=== PATIENT | male | born 1955 | race Caucasian/White ===

== ENCOUNTER 2023-10-03 15:25 | Outpatient (CLI) | payer OTHER, SELFPAY ==
--- NOTE | 2023-10-03 15:52 | ECHO_ITS ---
Patient Info Name: Amos Liu Age: 68 years : 1955 Gender: Male Ht: 72 in Wt: 285 lbs BSA: 2.61 m2 HR: 70 bpm BP: 120 / 80 mmHg Technical Quality: Fair Exam Date: 10/03/2023 4:00 PM Exam Location: Echo Lab Patient Status: Outpatient Admit Date: 10/03/2023 Staff Ordering Physician: Moo Triplett DO Attending Provider: Moo Triplett DO Referring Physician: Uziel BAILEY; Exam Type: CA echo doppler color flow Study Info Indications I10 - Essential (primary) hypertension Complete two-dimensional, color flow and Doppler transthoracic echocardiogram is performed. Summary 1. Complete two-dimensional, color flow and Doppler transthoracic echocardiogram is performed. 2. Left ventricular chamber dimension is normal. 3. Left ventricular systolic function is normal, estimated at 60-65%. 4. There is mild concentric increased left ventricular wall thickness. 5. The left ventricular diastolic function is grade I diastolic dysfunction. 6. E/e' 8 is minimally elevated. 7. Left atrial chamber dimension is mildly enlarged. 8. There is trace mitral valve regurgitation. 9. There is trace pulmonic regurgitation. 10. The aortic root size at the sinus of Valsalva is borderline dilated at 4.1 cm. Left Ventricle E/e' 8 is minimally elevated. Left ventricular chamber dimension is normal. Left ventricular systolic function is normal, estimated at 60-65%. There is mild concentric increased left ventricular wall thickness. The left ventricular diastolic function is grade I diastolic dysfunction. Right Ventricle Right ventricular systolic function is normal and with normal TAPSE 1.8 cm. Right ventricular chamber dimension is normal. Left Atria Left atrial chamber dimension is mildly enlarged. Right Atria Right atrial chamber dimension is normal. Aortic Valve The aortic valve is trileaflet. There is no aortic valve stenosis. There is no aortic valve regurgitation. Pulmonic Valve There is trace pulmonic regurgitation. Mitral Valve There is no mitral valve stenosis. There is trace mitral valve regurgitation. Tricuspid Valve There is no tricuspid valve regurgitation. Pericardium/Pleural There is no pericardial effusion. Inferior Vena Cava Normal inferior vena cava with >50% collapse upon inspiration consistent with normal right atrial pressure, 5 mmHg. Aorta The aortic root size at the sinus of Valsalva is borderline dilated at 4.1 cm. Left Ventricular Outflow Tract Name Value Normal LVOT 2D LVOT Diameter 2.3 cm LVOT Doppler LVOT Peak Gradient 2 mmHg LVOT Mean Gradient 1 mmHg LVOT VTI 17 cm LVOT VTI/AV VTI Ratio 0.9 LVOT Stroke Volume 72 ml LVOT CO 4.3 l/min LVOT CI 1.6 l/min/m2 Pulmonic Valve Name Value Normal PV Doppler PV Peak Gradient
== END 2023-10-03 15:26 | disposition home or self-care (01) ==
LOC: ANHCARD 15:27
PROVIDERS: PCP Physician Assistant Medical; Visit Provider Internal Medicine Cardiovascular Disease
DX: I10 Essential (primary) hypertension (principal)
CPT/HCPCS: 93306

== ENCOUNTER 2023-11-26 08:25 | Outpatient (CLI) | payer OTHER, SELFPAY ==
--- NOTE | ~2023-11-26 | NM_ITS ---
EXAMINATION: NM mustapha stress w perfusion DATE: 11/26/2023 11:26 INDICATION: Chest pain. TECHNIQUE: Rest images were obtained following intravenous administration of 8.9 mCi Tc99m tetrofosmi n (Myoview). The patient was infused intravenously with Lexiscan (regadenoson). Then, 29.2 mCi Tc99m tetrofosmin (Myoview) was administered intravenously, and supine and prone stress images were obtaine d. Data was reconstructed into short axis and horizontal and vertical long axis SPECT images. Gated S PECT images were also obtained. COMPARISON: Myocardial perfusion imaging 10/21/2017 FINDINGS: There is a moderate-sized, mild, fixed perfusion defect involving mid to basal inferior and inferolateral segments of left ventricle, consistent with infarct. No reversible component to sugges t ischemia. There is no segmental wall motion abnormality. Left ventricular ejection fraction measu res 58%. IMPRESSION: 1. Moderate-sized area of mild infarct involving mid to basal inferior and inferolateral segments of left and lateral. 2. Normal left ventricular ejection fraction measuring 58%. Reviewed, dictated and finalized at location A. IMPRESSION: 1. Moderate-sized area of mild infarct involving mid to basal inferior and infe rolateral segments of left and lateral. 2. Normal left ventricular ejection fraction measuring 58%.
--- NOTE | 2023-11-26 08:35 | EST_ITS ---
Patient Info Name: Amos Liu Age: 68 years : 1955 Gender: Male Ht: 72 in Wt: 290 lbs BSA: 2.64 m2 HR: 77 bpm BP: 136 / 90 mmHg Heart Rhythm: Sinus Rhythm Exam Date: 11/26/2023 10:37 AM Exam Location: Echo Lab Patient Status: Outpatient Admit Date: 11/26/2023 Staff Ordering Physician: Moo Triplett DO Attending Provider: Moo Triplett DO Exercise Technologist: Bonnie Gardner CT Exercise Physician: Moo Triplett DO Exam Type: CA stress mustapha w NM Study Info Indications Z01.810 - Encounter for preprocedural cardiovascular examination R06.09 - Other forms of dyspnea A regadenoson stress test was performed. Summary 1. 1. Negative lexiscan stress test for ischemic ST changes by ECG criteria. 2. 2. Stable hemodynamics throughout the test. 3. 3. Nuclear scan to follow and will be reported separately. Please correlate with it. 4. 4. Patient informed of the above results. Protocol: Lexiscan Stress ECG Details Stage: REST Duration (min): 1 min : 21 sec HR (bpm): 76 SBP (mmHg): 136 DBP (mmHg): 90 Stage: REST Duration (min): 5 min : 6 sec HR (bpm): 74 SBP (mmHg): 136 DBP (mmHg): 90 Stage: STAGE 1 Duration (min): 1 min : 0 sec HR (bpm): 80 SBP (mmHg): 136 DBP (mmHg): 90 Stage: RECOVERY Duration (min): 1 min : 0 sec HR (bpm): 85 SBP (mmHg): 136 DBP (mmHg): 90 Stage: RECOVERY Duration (min): 2 min : 0 sec HR (bpm): 86 SBP (mmHg): 136 DBP (mmHg): 90 Stage: RECOVERY Duration (min): 3 min : 0 sec HR (bpm): 84 SBP (mmHg): 127 DBP (mmHg): 86 Stage: RECOVERY Duration (min): 3 min : 42 sec HR (bpm): 81 SBP (mmHg): 127 DBP (mmHg): 86 Rest HR: 74 bpm Peak HR: 86 bpm Rest Sys BP: 136 mmHg Peak Sys BP: 136 mmHg Max Pred HR: 154 bpm % Max Pred HR: 56 % Target HR: 131 bpm Max RPP: 11,696 bpm*mmHg Termination Reason: Completed protocol Cardiac Symptoms: Shortness of breath Total Time: 1 min : 0 sec Rest Frazier BP: 90 mmHg Peak Frazier BP: 90 mmHg Total Dose: 0.4 mg Resting ECG Sinus rhythm, frequent PVC's. Stress ECG No ST changes. Arrhythmias None. Report Signatures
== END 2023-11-26 08:26 | disposition home or self-care (01) ==
PROVIDERS: PCP Physician Assistant Medical; Visit Provider Internal Medicine Cardiovascular Disease
DX: R06.09 Other forms of dyspnea (principal); Z01.810 Encounter for preprocedural cardiovascular examination
CPT/HCPCS: 78452; 93017; A9502; J2785

== ENCOUNTER 2024-10-05 13:35 | Emergency (ER) | payer OTHER, SELFPAY ==
--- NOTE | ~2024-10-05 | CT_ITS ---
EXAMINATION: CT foot LT wo con DATE: 10/05/2024 14:00 INDICATION: Left foot injury. TECHNIQUE: Computed tomography (CT) of the left foot was performed without intravenous contrast. Auto mated exposure control and iterative reconstruction technique were employed. The dose-length product was 389.23 mGy-cm. COMPARISON: None FINDINGS: There is moderate hallux valgus. There is a comminuted intra-articular fracture of head of first proximal phalanx. The main distal fracture fragment demonstrates 21 degrees dorsal angulation. There is dorsal dislocation of second middle phalanx with respect to the proximal phalanx. There are chip fractures of the dorsal and volar aspects of base of third middle phalanx. There is a chip avuls ion fracture of dorsal base of fourth distal phalanx. There is a nondisplaced fracture of volar base of fourth middle phalanx. There is soft tissue gas in the second-fourth digits. 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 There is moderate osteoarthritis of first metatarsophalangeal joint. Th ere is heterotopic ossification distal to medial malleolus. There is an enthesophyte of posterior asp ect of calcaneal tuberosity. IMPRESSION: 1. Fractures of first proximal phalanx, third middle phalanx, fourth middle phalanx. 2. Dislocation of second proximal interphalangeal joint. 3. Soft tissue gas in the second-fourth digits, which may be secondary to a skin defect or infection. Reviewed, dictated and finalized at location B. IMPRESSION: 1. Fractures of first proximal phalanx, third middle phalanx, fourth middle pha lanx. 2. Dislocation of second proximal interphalangeal joint. 3. Soft tissue gas in the second-fourth digits, which may be secondary to a ski n defect or infection.
[2024-10-05 13:36] VITALS: BP 174/107; PULSE 91; RESP 20; TEMP 36.4; O2SAT 93
--- NOTE | 2024-10-05 13:39 | ED_ITS ---
HPI - Extremity Problem General Chief complaint: Extremity Injury, Lower Stated complaint: left foot injury Time Seen by Provider: 10/05/24 13:39 Source: patient Mode of arrival: wheelchair Limitations: no limitations History of Present Illness HPI Narrative: 69 year old male presents to the Emergency Department complaining of left foot injury and pain. 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 He was wearing steel tipped shoes. He is unable to bear weight. The bottom of his sock is saturated with blood. Last tetanus unknown. He denies any other injury. MD Complaint: extremity pain Onset (ago): minute(s) Pain Consistency: constant Location: left and lower extremity Radiation: none Relieving factors: nothing Exacerbating factors: palpation Associated symptoms: denies other symptoms Related Data Home Medications ?Medication ?Instructions ?Recorded ?Confirmed ?Last Taken ?Type vfnwnvmw-oo-jaboi 300 mcg-K 60 1 tablet PO DAILY 06/15/19 05/05/24 Unknown History mcg-lycop 600 mcg-lutein 300 mcg tablet (Centrum Silver Men) amoxicillin 500 mg capsule 2,000 mg PO ONCE dental appts 11/06/23 05/05/24 Unknown History celecoxib 200 mg capsule (Celebrex) 200 mg PO DAILY 11/06/23 05/05/24 Unknown History vitamin e BYMOUTH DAILY 11/06/23 05/05/24 Unknown History Allergies Allergy/AdvReac Type Severity Reaction Status Date / Time No Known Allergies Allergy Mild Verified 10/05/24 13:39 Review of Systems Review of Systems: All systems reviewed & are unremarkable except as noted in HPI and below Constitutional: Constitutional: Reports as per HPI Eyes: Eyes: Reports as per HPI and Denies change in vision ENT: Reports system reviewed and no additional complaints, except as documented Cardiovascular: Cardiovascular: Reports as per HPI and Denies chest pain Respiratory: Respiratory: Reports as per HPI, Denies chest congestion, Denies cough and Denies dyspnea Gastrointestinal: Gastrointestinal: Reports as per HPI Genitourinary: Genitourinary: Reports no additional male genitourinary complaints Musculoskeletal: Musculoskeletal: Reports no additional musculoskeletal complaints and Reports arthralgias Comments: left foot pain Integumentary/Breasts: Skin/Breast: Reports system reviewed and no additional complaints, except as docu Neurologic: Reports system reviewed and no additional complaints, except as documented, Denies headache(s) and Denies numbness PMFSH Past Medical History Medical History Low HDL (under 40) Venous insufficiency CHF (congestive heart failure), NYHA class III Lower extremity edema Acquired clawhand, left hand Hoarseness ARIELLE on CPAP Obesity (BMI 35.0-39.9 without comorbidity) Thoracic aortic aneurysm without rupture Ventricular ectopic beats Essential hypertension THOMAS (dyspnea on exertion) ARIELLE on CPAP Surgical History Surgical History History of knee surgery non-cancerous tumor removed History of left knee replacement Family History Family History Father Family history of liver disease, Onset Age: 78 Other Family history of colitis Social History Social History Smoking status: Former smoker Tobacco type: cigarettes Second hand tobacco smoke exposure: Yes Smoking end date: 07/29/76 Alcohol intake: never Substance use: never Substance use type: does not use Do You Feel Safe in your Home?: Yes Lack of Transportation: No Lack of Food: Never True Current Housing: I Have Housing Concerned About Future Housing: No Difficulty Paying Gas/Electric Bills: No Difficulty Paying for Meds: No Currently Unemployed: No Difficulty w/ Childcare or Family Care: No Living arrangements: alone Occupation/Education: occupation 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 Gender identity (if verbalized by the patient): Male Exam Const: Nutritional Appearance: obese Orientation/consciousness: patient oriented x3 Limitations: no limitations Other: mild distress HENMT: Head: normal to inspection Ears: external ears normal Face/Nose/Sinus: Normal external nose present Face and sinus: normal facial exam Mouth: Yes Normal oral and palatal mucosa present Other: skull non-tender to palpation Eyes: Pupils: Equal, round and reactive pupils present EOM: EOMs intact bilaterally Direct Ophthalmoscopy: no photophobia Neck: Neck: normal visual inspection Other: non-tender to palpation Chest: Chest palpation & inspection: normal inspection of the chest and no tenderness Resp: Effort & Inspection: normal respiratory effort Auscultation: clear to auscultation bilaterally Cardio: Rate: regular rate Rhythm: regular rhythm Other: peripheral pulses intact and symmetric GI: Inspection: non-distended GI Palp: Yes Soft to palpation and No Tenderness to palpation present (GI) Back/Spine/Pelvis: Back: no CVA tenderness Skin: General skin exam: normal color Rashes: no rashes Other: lacerations to left foot - extent unknown until can be cleaned after CT scan Neuro: General: patient oriented x3 Speech: normal speech Other: no gross deficit Extrem: Other: trauma to left foot with diffuse tenderness distal foot, lacerations unknown extent due to blood covering at this time Course Course Emergency Course: 69 y/o male presents to the ED with left foot injury and pain. Patient fell and had 55 gallon drum fall onto his foot. 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 PE: diffuse tenderness distal foot and toes. Laceration, unknown what extent until can be cleaned. Has largest laceration at base 2nd toe with lacerations in between toes, patient not tolerating full exam due to pain with movment. Tx: foot soaked and cleansed wounds as best as patient could tolerate. Attempted reduction of 2nd toe dislocation, but patient unable to tolerate. Since he is having ortho /podiatry evaluation of open fx/s, wounds, will defer to accepting service. CT L Foot: *comminuted, IA fx head 1st prox phalanx with main distal fragment 21 degrees dorsal angulation *dorsal dislocation 2nd MP with respect to the PP *chip fx's dorsal and volar aspects base 3rd MP *chip avulsion fx base 4th DP *nondisplaced fx volar base 4th MP *soft tissue gas in the 2nd-4th digits (5605) discussed with Dr. Yang. States does not take Workers Comp and no one locally does. Usually need [facility] go to university setting. (0401) report given to [facility] transfer. Will connect with ED (3685) discussed with Dr. Bryan (ED) who accepted patient for transfer to ED for evaluation and further treatment. Vital Signs Vital signs: Vital Signs Temperature 36.4 C 10/05/24 13:36 Pulse Rate 91 10/05/24 13:36 Respiratory Rate 20 10/05/24 13:36 Blood Pressure 174/107 H 10/05/24 13:36 Pulse Oximetry 93 10/05/24 13:36 Oxygen Delivery Room Air 10/05/24 13:36 Temperature 36.8 C 10/05/24 15:33 Pulse Rate 78 10/05/24 15:33 Respiratory Rate 20 10/05/24 15:33 Blood Pressure 132/58 L 10/05/24 15:33 Pulse Oximetry 94 10/05/24 15:33 Oxygen Delivery Room Air 10/05/24 15:33 Transfer Transfered to: [facility] Hospital Transportation: Other (private vehicle) Transfer rationale: specialty evaluation of multiple open fractures, wounds, dislocation secondary to trauma. Not available here Accepting physician: Dr. Bryan Transfer comments: NPO Discharge Plan Discharge Clinical Impression: Fracture of multiple toes, Laceration of toe of left foot, Dislocation of second toe, left, open, Crush injury of left foot Patient Disposition: Acute Care Hospital Condition: Stable Additional Instructions: Go directly to [facility] Emergency Department Nothing to eat or drink Patient Language: Marshallese Prescriptions: No Action Centrum Silver Men 300-600-300 mcg tablet 1 tablet PO DAILY celecoxib [Celebrex] 200 mg capsule 200 mg PO DAILY vitamin e BYMOUTH DAILY amoxicillin 500 mg capsule 2,000 mg PO ONCE hydrochlorothiazide 25 mg tablet 25 mg PO DAILY Qty: 90 1RF metoprolol succinate 50 mg tablet extended release 24 hr 50 mg PO DAILY Qty: 90 1RF Follow-up/Referrals: Jennifer Christensen PA-C [Primary Care Provider] - Time of Disposition: 15:30
[2024-10-05 14:30] VITALS: BP 132/73; PULSE 79; RESP 17; O2SAT 95
[2024-10-05 15:33] VITALS: BP 132/58; PULSE 78; RESP 20; TEMP 36.8; O2SAT 94
--- OUTSIDE RECORDS SUMMARY | 2024-10-05 15:38 | XMS_ITS | Encounter Summary ---
Author Organization [facility] Address [address] [place] [address] Care Team Providers Care Seaman Officer Name Role Phone Jennifer Christensen Primary Care Provider [phone] Encounter Details Date Type Department Care Team (Late st Contact Info) Description 07/21/[address] [facility] [address] [place] [address] Elzbieta Phan, PharmD Social History Tobacco Use Types Packs/Day Years Used Date Smoking Tobacco: Former Smokeless Tobacco: Never Alcohol Use Standard Drinks/Week Comments No 0 (1 standard drink = 0.6 oz pur e alcohol) AUDIT-C Answer Date Recorded Frequency of Alcohol Consumption Never 01/11/2019 Average Number of Drinks Not on file 019 Frequency of Binge Drinking Not on file 12/27 Sex and Gender Information Value Date Recorded Sex Assigned at Male 08/20/2019 6:33 PM CONSERVATION AGENT Legal Sex Male 7:08 PM CDT Gender Identity Male 08/20/2019 6:33 PM CONSERVATION AGENT Sexual Orientation Straight 08/20/2019 6: 33 PM CONSERVATION AGENT documented as of this encounter Functional Status * RETIRED Are you deaf or do you have serious difficulty hearing Answer Date of Assessment Author Status No 07/11/2019 9:04 AM CONSERVATION AGENT Acti ve documented as of this encounter Plan of Treatment Not on file documented as of this encounter Visit Diagnoses Not on filedocumented in this encounter Care Teams Seaman Officer Relationship Specialty Start Date End Date Jennifer Christensen PA PCP - General PHYSICIAN FURNITURE CRATER 01/11/19 documented as of this encounter
--- OUTSIDE RECORDS SUMMARY | 2024-10-05 15:38 | XMS_ITS | Clinical Summary ---
Author Organization [facility] Address [facility] [place] [address] Care Team Providers Care Engine Service Repairer Name Role Phone Jennifer Christensen Primary Care Provider [phone] Allergies No known active allergies Medications metoprolol succinate ER 50 MG 24 hr tablet Take 50 mg by mouth daily. 12/05/2018 Active multi vitamin/minerals (VITAMINS/MINERA LS) tablet Take 1 tablet by mouth daily. Active hydrochlorothiaz rupa 50 MG tablet Take 50 mg by mouth daily. 1 06/20/2019 Active hydrocodone-acet aminophen 5-325 MG tabletIndication s:Acute Pain < 7 Day Supply Take 1 tablet by mouth every 6 (six) hours as needed (Moderate pain (Scale 6-7)). Indications : Acute Pain < 7 Day Supply 24 tablet 07/16/2019 Active Active Problems Problem Noted Date Diagnosed Date Near syncope 08/20/2019 Hypotension 08/20/2019 Septic arthritis of ankle ([facility]) 06/28 History of total left knee replacement 9 Family History Medical History Relation Comments Heart Disease Father Heart Disease Son Relation Status Comments Father Son Social History Tobacco Use Types Packs/Day Years [...] Sex Assigned at Male 08/20/2019 6:33 PM CALL CENTER CONSULTANT Legal Sex Male 7:08 PM CDT Gender Identity Male 08/20/2019 6:33 PM CALL CENTER CONSULTANT Sexual Orientation Straight 08/20/2019 6: 33 PM CALL CENTER CONSULTANT Last Filed Vital Signs Vital Sign Reading Time Taken Comments Blood Pressure 131/69 08/21/2019 8:29 AM CALL CENTER CONSULTANT Pulse 81 08/21/2019 7:00 AM CALL CENTER CONSULTANT Temperature 37.1 C (98.7 F) 08/21/2019 7:00 AM CALL CENTER CONSULTANT Respiratory Rate 16 08/21/2019 7:00 AM CALL CENTER CONSULTANT Oxygen Saturation 94% 08/21/2019 3:16 AM CALL CENTER CONSULTANT Inhaled Oxygen Concentration - - Weight 124.8 kg (275 lb 2.2 oz) 08/21/2019 3:12 AM CALL CENTER CONSULTANT Height 182.9 cm (6') 08/20/2019 6:30 PM CALL CENTER CONSULTANT Body Mass Index 37.31 08/20/2019 6:30 PM CALL CENTER CONSULTANT Plan of Treatment Health Maintenance Due Date Last Done Comments Colorectal Cancer Screening Colonoscopy (10 Years) 1955 Hepatitis C 1975 DTaP, Tdap and Td Vaccines ( 1 - Tdap) 1976 Zoster Vaccines (1 of 2) 2007 RSV Immunization or 60+ Years (1 - Risk 60-74 years 1-dose series) 2017 Pneumococcal Vaccine: 65+ Ye ars (1 of 1 - PCV) 2022 COVID-19 Vaccine (1 - 2023-2 5 season) 2024 Influenza Adult (#1) 2024 04/22/2010 Meningococcal B Vaccine Aged Out No l onger eligible based on patient's age to complete this topic Meningococcal Vaccine Aged Out No julian jacob eligible based on patient's age to complete this topic RSV Immunizations Under 20 Months Aged Out No longer eligible based on patient's age to complete this topic Goals Goal Patient Goal Type Associated Problems Recent Progress Patient-Stated? Author HOME TO [facility] No Porsha Walker, RN Insurance MEDICARE PART A Member Subscriber Plan / Payer (Ef fective 2023-Present) Name:Amos Liu Relation to Subscriber:Self Name:Amos Liu Payer ID:Not on file Group ID:Not on file Type:Indemnity Address: [facility] [address] [place], [place] [employer] Advance Directives * Full Code (Latest Code Status on File) Date Activated Date Inactivated Comments 08/20/2019 4:49 PM 08/21/2019 4:35 PM * Full Code Date Activated Date Inactivated Comments 07/11/2019 9:40 AM 07/16/2019 7:06 PM Care Teams Engine Service Repairer Relationship Specialty Start Date End Date Jennifer Christensen PA PCP - General PHYSICIAN ELECTRON BEAM PHOTO MASK TECHNICIAN 01/11/19
--- OUTSIDE RECORDS SUMMARY | 2024-10-05 15:38 | XMS_ITS | Encounter Summary ---
Author Organization [facility] Address [address] [place] [address] Phone Care Team Providers Care Digital Marketing Officer Name Role Phone No, Physician Primary Care Provider [phone] Jennifer Christensen Primary Care Provider Royer Pierce MD Unavailable [phone] Royer Figueredo OT Unavailable [phone] Encounter Details Date Type Department Care Team (Latest Contact Info) Description 10/21/2017 Orders Only [facility] Scanning, Provider Social History Tobacco Use Types Packs/Day Years Used Date Smoking Tobacco: Never Assessed Sex and Gender Information Value Date Recorded Sex Assigned at Not on file Legal Sex Male 4:40 AM COSTUMER ASSISTANT Gender Identity Not on file Sexual Orientation Not on file documented as of this encounter Plan of Treatment Not on file documented as of this encounter Procedures Procedure Name Priority Date/Time Associated Diagnosis Comments CARDIOLOGY DOCUMENT SCAN 10/21/2017 documented in this encounter Results * SCAN - CARDIOLOGY (10/21/2017) Anatomical Region Laterality Modality Other us Provider Scanning CV CARDIAC SERVICES PROCEDURES Final Result documented in this encounter Visit Diagnoses Not on filedocumented in this encounter Care Teams Digital Marketing Officer Relationship Specialty Start Date End Date No, Physician PCP - General 12/11/18 09/13/22 Jennifer Christensen PA [address] [place] [address] PCP - General Physician Attending Psychiatrist 09/14/22 Royer Pierce MD [address] LOWR LEVEL LOWER LEVEL [address] [place] [address] Referring Physician Orthopedic Surgery 09/14/22 Royer Figueredo OT [id number] [address] Occupational Therapist Occupational Therapy 02/09/23 documented as of this encounter
--- OUTSIDE RECORDS SUMMARY | 2024-10-05 15:38 | XMS_ITS | Encounter Summary ---
Author Organization [facility] Address [address] [place] [address] Care Team Providers Care Cover Stripper Name Role Phone Jennifer Christensen Primary Care Provider [phone] Encounter Details Date Type Department Care Team (Late st Contact Info) Description 07/16/2019 Therapy Plan [facility] [address] [place] [address] [place] [address] [place] [address] Social History Tobacco Use Types Packs/Day Years [...] Sex Assigned at Male 08/20/2019 6:33 PM PERSONAL FINANCE INSTRUCTOR Legal Sex Male 7:08 PM CDT Gender Identity Male 08/20/2019 6:33 PM PERSONAL FINANCE INSTRUCTOR Sexual Orientation Straight 08/20/2019 6: 33 PM PERSONAL FINANCE INSTRUCTOR documented as of this encounter Functional Status * RETIRED Are you deaf or do you have serious difficulty hearing Answer Date of Assessment Author Status No 07/11/2019 9:04 AM PERSONAL FINANCE INSTRUCTOR Activ e documented as of this encounter Plan of Treatment Not on file documented as of this encounter Visit Diagnoses Not on filedocumented in this encounter Care Teams Cover Stripper Relationship Specialty Start Date End Date Jennifer Christensen PA PCP - General PHYSICIAN COURT SPECIALIST 01/11/19 documented as of this encounter
--- OUTSIDE RECORDS SUMMARY | 2024-10-05 15:38 | XMS_ITS | Clinical Summary ---
Author Organization [facility] Address [address] [place] [address] Care Team Providers Care Nuclear Engineering Technician Name Role Phone Jennifer Christensen PA-C Primary Care Provider [phone] Moo Triplett DO Unavailable Source Comments [facility],non-owned Affiliates and Associated Physician Practices is amultiple site organization consisting of ambulatory clinics and hospital sitesin [place], [place], [place] and [place]. This disclosure is being madepursuant to the Care Everywhere program and may not contain all information available regarding this patient. Last updated 18.[facility] Allergies Active Allergy Reactions Criticality Noted Date Comments Oxycodone Unknown Low 11/08/2022 Pt states has complaints of shortness of breath. States he must go outside and get some air when taking Oxycodone. Would like to avoid taking in the future. Medications * Be aware that medications may not be up to date on this document. Alwaysverify current medications with the patient. Medication Sig Dispensed Refills Start Date End Date Status multivitamin daily (THERAGRAN) tablet Take 1 (one) tablet by mouth daily with food Instructed patient to stop 1 week before surgery. Active metoprolol succinate XL 24hr (TOPROL XL) 50 MG tablet Take 1 (one) tablet by mouth once daily 4 12/05/2018 Active Cholecalciferol 50 MCG (2000 UT) Take 1 (one) tablet by mouth every morning Active Menthol, Topical Analgesic, (Biofreeze) 4 % Active VITAMIN E PO Take 1 tablet by mouth every morning Active Multiple Vitamins-Minerals (Super Thera Sierra M) TABS Take 1 (one) tablet by mouth every morning Active acetaminophen (Tylenol) 500 MG tabletIndications:Pa in [The details of the medication are not available because there are pending changes by a home health clinician.] 60 tablet 12/07/2023 Active Additional Information Patient taking differently:1,000 mg Oral 3 TIMES DAILY, Maximum allowable Acetaminophen amount = 4 Grams (4000 mg) / 24 hours.still taking, Indications: Pain, Reported on 12/19/2023 hydroCHLOROthiazide (Hydrodiuril) 25 MG tablet Take 1 (one) tablet by mouth once daily 02/13/2024 Active HYDROcodone-acetamin ophen ([place]) 10-325 MG tabletIndications:Ot her acute postprocedural pain TAKE ONE-HALF TO 1 TABLET BY MOUTH EVERY 4 HOURS NEEDED FOR PAIN 30 tablet 12/07/2023 Active docusate sodium (Colace) 100 MG capsule TAKE ONE CAPSULE BY MOUTH 2 TIMES A DAY 60 capsule 12/07/2023 5 Active aspirin (Aspirin) 81 MG chew tablet CHEW AND SWALLOW 1 TABLET BY MOUTH TWO TIMES A DAY FOR 42 DAYS FOR BLOOD CLOT PREVENTION 84 tablet 12/07/2023 5 Active Acetaminophen Extra Strength 500 MG TABS TAKE TWO TABLETS BY MOUTH 3 TIMES A DAY FOR 10 DAYS. MAX OF 4000 MG OF ACETAMINOPHEN PER DAY 60 tablet 12/07/2023 5 Active celecoxib (CeleBREX) 200 MG capsuleIndications:P rimary osteoarthritis of right knee Take 1 capsule by mouth once daily 30 capsule 5 04/27/2024 Active Active Problems Problem Noted Date Diagnosed Date History of total left knee replacement 9 Primary osteoarthritis of right knee 12/15/2018 Encounters Date Type Department Care Team Description 10/05/2024 3:37 PM CDT Emergency [facility] EMERGENCY DEPARTMENT [address] [place] [address] from Last 3 Months Immunizations Name Administration Dates Next Due INFLUENZA VACCINE 04/22/2010 Social History Tobacco Use Types Packs/Day Years Used Date Smoking Tobacco: Never Smokeless Tobacco: Former Chew Quit: 11/26/2009 Tobacco Cessation:Counseling Given: Not Answered Alcohol Use Standard Drinks/Week Comments Not Currently 0 (1 standard drink = 0.6 oz pur e alcohol) quit 1982 OASIS D0700: Social Isolation Answer Da te Recorded Frequency of experiencing loneliness or isolatio n Never 12/25/2023 OASIS A1250: Transportation Answer Date Recorded Lack of Transportation (Medical) No 12/25/2023 Lack of Transportation (Non-Medical) No 12/25/2023 Patient Unable or Declines to Respond No 12/25/2023 OASIS B1300: Health Literacy Answer Tristen e Recorded Frequency of needing help to read materials from doctor or pharmacy Never 12/25/2023 AUDIT-C Answer Date Recorded Q1: How often do you have a drink containing alcohol? Monthly or less 12/06/2023 Q2: How many drinks containi ng alcohol do you have on a typical day when you are drinking? Patient does not drink Q3: How often do you have si x or more drinks on one occasion? Never 12/06/2023 Hunger Vital Sign Answer Date Recorded Within the past 12 months, y ou worried that your food would run out before you got the money to buy more. Never true 12/06/19 24 Within the past 12 months, t he food you bought just didn't last and you didn't have money to get more. Never true 12/06/2023 Sex and Gender Information Value Date Recorded Sex Assigned at Not on file Gender Identity Not on file Sexual Orientation Not on file Last Filed Vital Signs Vital Sign Reading Time Taken Comments Blood Pressure 122/66 12/25/2023 1:39 PM CDT Pulse 66 12/25/2023 1:39 PM CDT Temperature 36.6 C (97.8 F) 12/25/2023 1:39 PM CDT Respiratory Rate 17 12/25/2023 1:39 PM CDT Oxygen Saturation 98% 12/25/2023 1:39 PM CDT Inhaled Oxygen Concentration - - Weight 128.6 kg (283 lb 9.6 oz) 12/06/2023 7:36 AM CDT Height 182.9 cm (6') 12/06/2023 7:36 AM CDT Body Mass Index 38.46 12/06/2023 7:36 AM CDT Plan of Treatment Health Maintenance Due Date Last Done Comments COLOGUARD (AGES 45-75) - COL ON CA SCREENING 1957 COLON MONITORING 1957 COLONOSCOPY - COLON CA SCREENING 1957 CT COLONOGRAPHY - COLON CA SCREENING 1957 Colorectal Cancer Screening 1957 FIT - COLON CA SCREENING 1957 FLEX SIG - COLON CA SCREENING 1957 LIPID TESTING 1957 HEPATITIS C SCREENING 07/19/1975 DTAP/TDAP/TD VACCINES (1 - Tdap) 1976 PNEUMOCOCCAL VACCINE 50+ (1 of 1 - PCV) 2007 ZOSTER VACCINE (1 of 2) 2007 COVID-19 VACCINE (1 - 2023-2 5 season) 2024 INFLUENZA VACCINE (#1) 2024 04/22/2010 DEPRESSION SCREENING 07/29/2024 SCREENING FOR DIABETES 10/02/2026 , 04/04/2010 Respiratory Syncytial Virus (RSV) Vaccine Pt: or over 60 yrs (1 - 1-dose 75+ series) 2032 HEPATITIS B VACCINE Aged Out No longe r eligible based on patient's age to complete this topic HIB VACCINE Aged Out No longer eligi ble based on patient's age to complete this topic HPV VACCINE Aged Out No longer eligi ble based on patient's age to complete this topic MENINGOCOCCAL (Group B) VACCINE Aged Out No longer eligible b ased on patient's age to complete this topic MENINGOCOCCAL VACCINE Aged Out No julian jacob eligible based on patient's age to complete this topic Medical Devices Implanted Type Area Toolroom Keeper Device Identifier Shelf Expiration Date Model / Serial / Lot Cmnt Bone Plc R 40gm Grn Implanted:Qty: 2 on 12/06/2023 by Lew Leos MD at [facility] Right: Knee [employer] 03/28/2026 [id number] / / [id number] Cmpnt Ptlr Std 31mm 3 Pg Kn Ser A Implanted:Qty: 1 on 12/06/2023 by Lew Leos MD at [facility] Right: Knee [employer] 07/02/2028 [id number] / / [id number] Cmpnt Fem Kn Rt Cr Cmnt Prm Vngrd Intlk Implanted:Qty: 1 on 12/06/2023 by Lew Leos MD at [facility] Right: Knee [employer] 07/11/2033 [id number] / / [id number] Tray Tib 83mm Kn Cocr I Beam Implanted:Qty: 1 on 12/06/2023 by Lew Leos MD at [facility] Right: Knee [employer] 01/12/2032 [id number] / / [id number] Tibial Insert 83mm X 14mm Implanted:Qty: 1 on 12/06/2023 by Lew Leos MD at [facility] Right: Knee [employer] 08/03/2027 [id number] / / [id number] Procedures Procedure Name Priority Date/Time Associated Diagnosis Comments COMPREHENSIVE METABOLIC PANEL Routine 10/03/2023 1:11 PM SMELTER OPERATOR Pre-op evaluation from Last 3 Months or Most Recently Relevant to Health Maintenance Results * COMPREHENSIVE METABOLIC PANEL (10/03/2023 1:11 PM SMELTER OPERATOR) Glucose 100 70 - 105 mg/dL 10/03/2023 1:48 PM SMELTER OPERATOR [facility] Sodium 140 136 - 145 mmol/L 10/03/2023 1:48 PM SMELTER OPERATOR [facility] Potassium 4.2 3.5 - 5.1 mmol/L 10/03/2023 1:48 PM SMELTER OPERATOR [facility] Chloride 105 98 - 107 mmol/L 10/03/2023 1:48 PM SMELTER OPERATOR [facility] CO2 27 22 - 29 mmol/L 10/03/2023 1:48 PM SMELTER OPERATOR [facility] Calcium 9.2 8.4 - 10.4 mg/dL 10/03/2023 1:48 PM SMELTER OPERATOR [facility] Anion Gap 8 6 - 16 mmol/L 10/03/2023 1:48 PM SMELTER OPERATOR [facility] BUN 21 7 - 26 mg/dL 10/03/2023 1:48 PM SMELTER OPERATOR [facility] Creatinine 0.92 0.72 - 1.25 mg/dL 10/03/2023 1:48 PM SMELTER OPERATOR [facility] Alkaline Phosphatase 74 40 - 150 U/L 10/03/2023 1:48 PM SMELTER OPERATOR [facility] ALT 21 0 - 55 U/L 10/03/2023 1:48 PM SMELTER OPERATOR [facility] AST 21 5 - 34 U/L 10/03/2023 1:48 PM SMELTER OPERATOR [facility] Protein Total 8.3 6.4 - 8.3 gm/dL 10/03/2023 1:48 PM SMELTER OPERATOR [facility] Albumin 4.0 3.4 - 5.0 gm/dL 10/03/2023 1:48 PM SMELTER OPERATOR [facility] Bilirubin Total 0.6 0.2 - 1.2 mg/dL 10/03/2023 1:48 PM SMELTER OPERATOR [facility] eGFR by CKD-EPI >90 >=90 mL/min/1.7 3 m2 10/03/2023 1:48 PM SMELTER OPERATOR [facility] Blood BLOOD SPECIMEN / Unknown Venipuncture / Unknown 10/03/2023 1:11 PM SMELTER OPERATOR 10/03/2023 1:27 PM SMELTER OPERATOR Flavia Chen [employer] OFFICER LAB - CHEMISTRY O RDERABLES [facility] [address] [place] [address] from Last 3 Months or Most Recently Relevant to Health Maintenance Advance Directives * Full Code (Latest Code Status on File) Date Activated Date Inactivated Comments 12/06/2023 12:25 PM 12/07/2023 2:35 PM * Full Code Date Activated Date Inactivated Comments 04/19/2010 12:07 PM 04/23/2010 1:33 AM Care Teams Nuclear Engineering Technician Relationship Specialty Start Date End Date Jennifer Christensen PA-C [address] [place] [address] PCP - General Physician Retort Kiln Burner 10/03/23 Moo Triplett DO [address] [facility] [address] [place] [address] Internal Medicine 10/03/23
--- OUTSIDE RECORDS SUMMARY | 2024-10-05 15:38 | XMS_ITS | Encounter Summary ---
Author Organization [facility] Address [address] [place] [address] Care Team Providers Care Director Of Instruction Name Role Phone Jennifer Christensen PA-C Primary Care Provider [phone] Moo Triplett DO Unavailable Encounter Details Date Type Department Care Team (Late st Contact Info) Description 10/05/2024 3:37 PM CDT Emergency [facility] EMERGENCY DEPARTMENT [address] [place] [id number] Social History Tobacco Use Types Packs/Day Years Used Date Smoking Tobacco: Never Smokeless Tobacco: Former Chew Quit: 11/26/2009 Alcohol Use Standard Drinks/Week Comments Not Currently [...] on filedocumented in this encounter Care Teams Director Of Instruction Relationship Specialty Start Date End Date Jennifer Christensen PA-C [address] [address] PCP - General Physician Broach Operator 10/03/23 Moo Triplett DO [address] [facility] [address] [place] [address] Internal Medicine 10/03/23 documented as of this encounter
--- OUTSIDE RECORDS SUMMARY | 2024-10-05 15:38 | XMS_ITS | Referral Summary ---
Author Organization [facility] Address [address] [place] [address] Care Team Providers Care Gemologist Name Role Phone Jennifer Christensen Primary Care Provider Royer Pierce MD Unavailable [phone] Royer Figueredo OT Unavailable Allergies Active Allergy Reactions Criticality Noted Date Comments Oxycodone Other (See comments) Low 11/08/2022 Pt states has complaints of shortness of breath. States he must go outside and get some air when taking Oxycodone. Would like to avoid taking in the future. Medications cholecalciferol (VITAMIN D-3) 2,000 unit tablet Take 1 tablet (2,000 Units total) by mouth every morning Active metoprolol XL (TOPROL-XL) 50 mg 24 hr tablet Take 1 tablet (50 mg total) by mouth every morning 5 12/05/2018 Active multivitamin with minerals tablet Take 1 tablet by mouth every morning Active hydroCHLOROthia zide (HYDRODIURIL) 25 mg tablet Take 1 tablet (25 mg total) by mouth every morning 08/24/2022 Active vitamin E acetate (VITAMIN E ORAL) Take 1 tablet by mouth every morning Active acetaminophen (TYLENOL) 500 mg tablet Take 2 tablets (1,000 mg total) by mouth every 8 (eight) hours 60 tablet 10/25/2022 Active ibuprofen (ADVIL,MOTRIN) 600 mg tablet Take 1 tablet (600 mg total) by mouth 3 (three) times a day 60 tablet 10/25/2022 Active oxyCODONE (ROXICODONE) 5 mg immediate release tabletIndicatio ns:Pain Take 1 tablet (5 mg total) by mouth every 4 (four) hours as needed for pain 24 tablet 10/25/2022 Active furosemide (LASIX) 20 mg tablet Take 1 tablet (20 mg total) by mouth daily 10/31/2022 Active Active Problems Problem Noted Date Diagnosed Date Ulnar neuropathy at wrist, left 10/24/2022 Ulnar neuropathy of left upper extremity 023 Overview (10/11/2022): Added automatically from request for surgery [id number] PVC (premature ventricular contraction) 01/07/20 20 Social History Tobacco Use Types Packs/Day Years Used Date Smoking Tobacco: Never Smokeless Tobacco: Never AUDIT-C Answer Date Recorded Q1: How often do you have a drink containing alcohol? Never 10/24/2022 Q2: How many drinks containi ng alcohol do you have on a typical day when you are drinking? Patient does not drink Q3: How often do you have si x or more drinks on one occasion? Never 10/24/2022 Personal Safety Answer Date Recorded Have you ever been in or are you currently in a harmful physical or emotional relationship or is someone making you feel afraid or unsafe? Denies 10/24/2022 Sex and Gender Information Value Date Recorded Sex Assigned at Not on file Legal Sex Male 4:40 AM EXTRACTING MACHINE OPERATOR Gender Identity Not on file Sexual Orientation Not on file Last Filed Vital Signs Vital Sign Reading Time Taken Comments Blood Pressure 160/89 10/25/2022 7:40 AM CDT Pulse 87 10/25/2022 7:40 AM CDT Temperature 36.6 C (97.9 F) 10/25/2022 7:40 AM CDT Respiratory Rate 15 10/25/2022 7:40 AM CDT Oxygen Saturation 96% 10/25/2022 7:40 AM CDT Inhaled Oxygen Concentration - - Weight 122.5 kg (270 lb 1 oz) 10/24/2022 5:15 PM CDT Height 182.9 cm (6' 0.01 ) 10/24/2022 5:15 PM CD T Body Mass Index 36.62 10/24/2022 5:15 PM CDT Plan of Treatment Not on file Medical Devices Implanted Type Area Educational Audiologist Device Identifier Shelf Expiration Date Model / Serial / Lot Ethicon Endo Surgery Ligaclip Extra 2.6mm Ligate Open Small Clip Internal Titanium Latex Free Lt100 - Sna - [id number] Implanted:Qty: 1 on 10/24/2022 by Letitia Bunch MD at [facility] Clip Left: Forearm Eth[employer] Endo Surgery [id number] 07/28/2027 LT100 / NA / [id number] Ethicon Endo Surgery Ligaclip Extra 3.2mm Ligate Open Medium Clip Internal Titanium Latex Free Lt200 - Sna - [id number] Implanted:Qty: 1 on 10/24/2022 by Letitia Bunch MD at [facility] Clip Left: Forearm Ethicon Endo Surgery [id number] 05/28/2027 LT200 / NA / [id number] Ethicon Endo Surgery Ligaclip Extra 2.6mm Ligate Open Small Clip Internal Titanium Latex Free Lt100 - Sna - [id number] Implanted:Qty: 1 on 10/24/2022 by Letitia Bunch MD at [facility] Clip Left: Forearm Ethicon Endo Surgery [id number] 07/28/2027 LT100 / NA / [id number] Ethicon Endo Surgery Ligaclip Extra 3.2mm Ligate Open Medium Clip Internal Titanium Latex Free Lt200 - Sna - [id number] Implanted:Qty: 1 on 10/24/2022 by Letitia Bunch MD at [facility] Clip Left: Forearm Ethicon Endo Surgery [id number] 05/28/2027 LT200 / NA / [id number] Lt Total Knee Replacement Left: Knee Ethicon Endo Surgery Ligaclip Extra 2.6mm Ligate Open Small Clip Internal Titanium Latex Free Lt100 - [id number] Implanted:Qty: 1 on 10/24/2022 by Homer Talamantes MD at [facility] Left: Arm Ethicon Endo Surgery [id number] 04/27/2027 LT100 / / [id number] [employer] Avance 2-3mm 50mm Allograft Multiple Clean Graft Soft Tissue [id number] - Sna - [id number] Implanted:Qty: 1 on 10/24/2022 by Letitia Bunch MD at [facility] Left: Hand [employer] 10/26/2024 [id number] / NA / [id number] [place] [employer] [place] Advance Directives For more information, please contact: [phone] * Full Code (Latest Code Status on File) Date Activated Date Inactivated Comments 10/24/2022 5:24 PM 10/25/2022 2:16 PM Care Teams Gemologist Relationship Specialty Start Date End Date Jennifer Christensen PA [address] [place] [address] PCP - General Physician Cryptologic Technician Technical 09/14/22 Royer Pierce MD [address] LOWR LEVEL LOWER LEVEL [address] [place] [address] Referring Physician Orthopedic Surgery 09/14/22 Royer Figueredo OT [address] [address] Occupational Therapist Occupational Therapy 02/09/23
--- OUTSIDE RECORDS SUMMARY | 2024-10-05 15:38 | XMS_ITS | Referral Summary ---
Author Organization [facility] Address [address] [place] [address] Care Team Providers Care Railroad Engineer Name Role Phone Jennifer Christensen PA-C Primary Care Provider [phone] Moo Triplett DO Unavailable Source Comments [facility],non-owned Affiliates and Associated Physician Practices is amultiple site organization consisting of ambulatory clinics and hospital sitesin [place], [place], [place] and [place]. This disclosure is being madepursuant to the Care Everywhere program and may not contain all information available regarding this patient. Last updated 18.[facility] [employer] Encounters Date Type Department Care Team Description 10/05/2024 3:37 PM CDT Emergency [facility] EMERGENCY DEPARTMENT [address] [place] [id number] from Last 3 Months Allergies Active Allergy Reactions Criticality Noted Date [...] daily 4 12/05/2018 Active Cholecalciferol 50 MCG (1999 UT) Take 1 (one) tablet by mouth [...] mouth once daily 02/13/2024 Active HYDROcodone-acetamin ophen ([place]) 10-325 MG tabletIndications:Ot her acute postprocedural pain [...] 9 Primary osteoarthritis of right knee 12/15/2018 Immunizations Name Administration Dates Next Due INFLUENZA [...] 12/06/2023 7:36 AM CDT Plan of Treatment Not on file Medical Devices Implanted Type Area Strip Stamp Straightener Device Identifier Shelf Expiration Date Model / Serial / Lot Cmnt Bone Plc R 40gm Grn Implanted:Qty: 2 on 12/06/2023 by Lew Leos MD at [facility] Right: Knee [employer] 03/28/2026 [id number] / / [id number] Cmpnt Ptlr Std 31mm 3 Pg Kn Ser A Implanted:Qty: 1 on 12/06/2023 by Lew Leos MD at [facility] Right: Knee [employer] 07/02/2028 [id number] / / [id number] Cmpnt Fem Kn Rt Cr Cmnt Prm Vngrd Intlk Implanted:Qty: 1 on 12/06/2023 by Lew Leos MD at [facility] Right: Knee [employer] 07/11/2033 [id number] / / [id number] Tray Tib 83mm Kn Cocr I Beam Implanted:Qty: 1 on 12/06/2023 by Lew Leos MD at [facility] Right: Knee [employer] 01/12/2032 [id number] / / [id number] Tibial Insert 83mm X 14mm Implanted:Qty: 1 on 12/06/2023 by Lew Leos MD at [facility] Right: Knee [employer] 08/03/2027 [id number] / / [id number] Procedures Procedure Name Priority Date/Time Associated Diagnosis Comments COMPREHENSIVE METABOLIC PANEL Routine 10/03/2023 1:11 PM LIGHT COIL WINDER Pre-op evaluation from Last 3 Months or Most Recently Relevant to Health Maintenance Results * COMPREHENSIVE METABOLIC PANEL (10/03/2023 1:11 PM LIGHT COIL WINDER) Pathologist [facility] Glucose 100 70 - 105 mg/dL 10/03/2023 1:48 PM LIGHT COIL WINDER [facility] Sodium 140 136 - 145 mmol/L 10/03/2023 1:48 PM LIGHT COIL WINDER [facility] Potassium 4.2 3.5 - 5.1 mmol/L 10/03/2023 1:48 PM LIGHT COIL WINDER [facility] Chloride 105 98 - 107 mmol/L 10/03/2023 1:48 PM LIGHT COIL WINDER [facility] CO2 27 22 - 29 mmol/L 10/03/2023 1:48 PM LIGHT COIL WINDER [facility] Calcium 9.2 8.4 - 10.4 mg/dL 10/03/2023 1:48 PM LIGHT COIL WINDER [facility] Anion Gap 8 6 - 16 mmol/L 10/03/2023 1:48 PM LIGHT COIL WINDER [facility] BUN 21 7 - 26 mg/dL 10/03/2023 1:48 PM LIGHT COIL WINDER [facility] Creatinine 0.92 0.72 - 1.25 mg/dL 10/03/2023 1:48 PM LIGHT COIL WINDER [facility] Alkaline Phosphatase 74 40 - 150 U/L 10/03/2023 1:48 PM LIGHT COIL WINDER [facility] ALT 21 0 - 55 U/L 10/03/2023 1:48 PM LIGHT COIL WINDER [facility] AST 21 5 - 34 U/L 10/03/2023 1:48 PM LIGHT COIL WINDER [facility] Protein Total 8.3 6.4 - 8.3 gm/dL 10/03/2023 1:48 PM LIGHT COIL WINDER [facility] Albumin 4.0 3.4 - 5.0 gm/dL 10/03/2023 1:48 PM LIGHT COIL WINDER [facility] Bilirubin Total 0.6 0.2 - 1.2 mg/dL 10/03/2023 1:48 PM LIGHT COIL WINDER [facility] eGFR by CKD-EPI >90 >=90 mL/min/1.7 3 m2 10/03/2023 1:48 PM LIGHT COIL WINDER [facility] Blood BLOOD SPECIMEN / Unknown Venipuncture / Unknown 10/03/2023 1:11 PM LIGHT COIL WINDER 10/03/2023 1:27 PM LIGHT COIL WINDER Flavia Chen COORDINATOR INTEGRATED MARKETING-ROTARY RIG ENGINE OPERATOR LAB - CHEMISTRY O RDERABLES [facility] [address] [place] [address] from Last 3 Months or Most Recently Relevant to Health Maintenance Advance Directives * Full Code (Latest Code Status on File) Date Activated Date Inactivated Comments 12/06/2023 12:25 PM 12/07/2023 2:35 PM * Full Code Date Activated Date Inactivated Comments 04/19/2010 12:07 PM 04/23/2010 1:33 AM Care Teams Railroad Engineer Relationship Specialty Start Date End Date Jennifer Christensen PA-C [facility] [address] [address] PCP - General Physician Dowel Inspector 10/03/23 Moo Triplett DO [address] [facility] [address] [place] [address] Internal Medicine 10/03/23
--- OUTSIDE RECORDS SUMMARY | 2024-10-05 15:38 | XMS_ITS | Clinical Summary ---
Author Organization [facility] Address [address] [place] [address] Care Team Providers Care Senior Environmental Technician Name Role Phone Jennifer Christensen Primary Care Provider [phone] Royer Pierce MD Unavailable [phone] Royer Figueredo OT Unavailable Allergies Active Allergy [...] (10/11/2022): Added automatically from request for surgery [id number] PVC (premature ventricular contraction) 01/07/20 20 Surgical History Surgery Date Site/Laterality Comments ANKLE SURGERY Right KNEE SURGERY Left Medical History Medical History Date Comments Hypertension Head injury Sleep apnea Motion sickness Family History Medical History Relation Name Comments No Known Problems Father Heart murmur Mother Heart attack Mother's Brother Anesthesia problems Neg Hx Relation Name Status Comments Father Mother Alive Mother's Brother Social History Tobacco Use Types Packs/Day Years [...] on file 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 Gender Identity Not on file Sexual Orientation Not on file Obstetrics History Last Filed Vital Signs Vital Sign Reading [...] 10/24/2022 5:15 PM CDT Plan of Treatment Health Maintenance Due Date Last Done Comments Colon Cancer Screening-Colonoscopy 1955 Depression Screening 1955 Hepatitis C Screening 1955 Prostate Cancer Screening-PSA 1957 DTaP/Tdap/Td Vaccine (1 - Tdap) 1968 Hepatitis B Screening 1975 Pneumococcal vaccine 65+ (1 of 1 - PCV) 2007 Zoster Vaccine (1 of 2) 2007 Abdominal Aortic Aneurysm (AAA) Screen 2022 Well Visit 65+ 2022 Fall Risk Assessment 10/26/2023 10/25/2022 Influenza Vaccine (#1) 2024 07/04/2018, 2009 Medical Devices Implanted Type Area Baker Chef Device Identifier Shelf Expiration Date Model / Serial / Lot Ethicon Endo Surgery Ligaclip Extra 2.6mm Ligate Open Small Clip Internal Titanium Latex Free Lt100 - Sna - [id number] Implanted:Qty: 1 on 10/24/2022 by Letitia Bunch MD at [facility] Clip Left: Forearm Ethicon Endo Surgery [id number] 07/28/2027 LT100 / NA / [id number] Ethicon Endo Surgery Ligaclip Extra 3.2mm Ligate Open Medium Clip Internal Titanium Latex Free Lt200 - Sna - [id number] Implanted:Qty: 1 on 10/24/2022 by Letitia Bunch MD at [facility] Clip Left: Forearm Ethicon Endo Surgery [id number] 05/28/2027 LT200 / NA / [id number] Ethicon Endo Surgery Ligaclip Extra 2.6mm Ligate Open Small Clip Internal Titanium Latex Free Lt100 - Sna - [id number] Implanted:Qty: 1 on 10/24/2022 by Letitia Bunch MD at [facility] Clip Left: Forearm Ethicon Endo Surgery [id number] 07/28/2027 LT100 / NA / [id number] Ethicon Endo Surgery Ligaclip Extra 3.2mm Ligate Open Medium Clip Internal Titanium Latex Free Lt200 - Sna - [id number] Implanted:Qty: 1 on 10/24/2022 by Letitia Bunch MD at [facility] Clip Left: Forearm Ethicon Endo Surgery [id number] 05/28/2027 LT200 / NA / [id number] Lt Total Knee Replacement Left: Knee Ethicon Endo Surgery Ligaclip Extra 2.6mm Ligate Open Small Clip Internal Titanium Latex Free Lt100 - [id number] Implanted:Qty: 1 on 10/24/2022 by Homer Talamantes MD at [facility] Medicine Left: Arm Ethicon Endo Surgery [id number] 04/27/2027 LT100 / / [id number] Axogen Inc Avance 2-3mm 50mm Allograft Multiple Clean Graft Soft Tissue [id number] - Sna - [id number] Implanted:Qty: 1 on 10/24/2022 by Letitia Bunch MD at [facility] Left: Hand Axogen Inc 10/26/2024 [id number] / NA / [id number] Insurance [facility] Advance Directives For more information, please contact: [phone] * Full Code (Latest Code Status on File) Date Activated Date Inactivated Comments 10/24/2022 5:24 PM 10/25/2022 2:16 PM Care Teams Senior Environmental Technician Relationship Specialty Start Date End Date Jennifer Christensen PA [address] [place] [address] PCP - General Physician Fashion Photographer 09/14/22 Royer Pierce MD [address] LOWR LEVEL LOWER LEVEL [address] [place] [address] Referring Physician Orthopedic Surgery 09/14/22 Royer Figureedo OT [address] [facility] [address] [place] [address] Occupational Therapist Occupational Therapy 02/09/23
--- OUTSIDE RECORDS SUMMARY | 2024-10-05 15:38 | XMS_ITS | Patient Health Summary ---
Author Organization [facility] Address [address] [place] [address] Care Team Providers Care Medical Writer Name Role Phone Jennifer Christensen PA-C Primary Care Provider [phone] Moo Triplett DO Unavailable Note from [facility],non-owned Affiliates and Associated Physician Practices is amultiple site organization consisting of ambulatory clinics and hospital sitesin [place], [place], [place] and [place]. This disclosure is being madepursuant to the Care Everywhere program and may not contain all information available regarding this patient. Last updated 18.[facility] Allergies * Oxycodone(Unknown) -Low Criticality Medications * Be aware that medications may not be up to date on this document. Alwaysverify current medications with the patient. * multivitamin daily (THERAGRAN) tablet Take 1 (one) tablet by mouth daily with food Instructed patient to stop 1 week before surgery. * metoprolol succinate XL 24hr (TOPROL XL) 50 MG tablet(Started 12/05/2018) Take 1 (one) tablet by mouth once daily 4 refills left * Cholecalciferol 50 MCG (1999 UT) Take 1 (one) tablet by mouth every morning * Menthol, Topical Analgesic, (Biofreeze) 4 % * VITAMIN E PO Take 1 tablet by mouth every morning * Multiple Vitamins-Minerals (Super Thera Sierra M) TABS Take 1 (one) tablet by mouth every morning * acetaminophen (Tylenol) 500 MG tablet(Started 12/07/2023) [The details of the medication are not available because there are pending changes by a home healthclinician.] * hydroCHLOROthiazide (Hydrodiuril) 25 MG tablet(Started 02/13/2024) Take 1 (one) tablet by mouth once daily * HYDROcodone-acetaminophen (Chattaroy) 10-325 MG tablet(Started 12/07/2023) TAKE ONE-HALF TO 1 TABLET BY MOUTH EVERY 4 HOURS NEEDED FOR PAIN * docusate sodium (Colace) 100 MG capsule(Started 12/07/2023) TAKE ONE CAPSULE BY MOUTH 2 TIMES A DAY * aspirin (Aspirin) 81 MG chew tablet(Started 12/07/2023) CHEW AND SWALLOW 1 TABLET BY MOUTH TWO TIMES A DAY FOR 42 DAYS FOR BLOOD CLOT PREVENTION * Acetaminophen Extra Strength 500 MG TABS(Started 12/07/2023) TAKE TWO TABLETS BY MOUTH 3 TIMES A DAY FOR 10 DAYS. MAX OF 4000 MG OF ACETAMINOPHEN PER DAY * celecoxib (CeleBREX) 200 MG capsule(Started 04/27/2024) Take 1 capsule by mouth once daily 5 refills by 04/27/2025 Active Problems Problem Noted Date Diagnosed Date History of total left knee replacement 9 Primary osteoarthritis of right knee 12/15/2018 Immunizations * INFLUENZA VACCINE(Given 04/22/2010) Social History Tobacco Use Types Packs/Day Years [...] Mass Index 38.46 12/06/2023 7:36 AM CDT Medical Devices Implanted Type Area Mixing Engineer Device Identifier Shelf Expiration Date Model / Serial / Lot Cmnt Bone Plc R 40gm Grn Implanted:Qty: 2 on 12/06/2023 by Lew Leos MD at [facility] Right: Knee [employer] 03/28/2026 [id number] / / [id number] Cmpnt Ptlr Std 31mm 3 Pg Kn Ser A Implanted:Qty: 1 on 12/06/2023 by Lew Leos MD at [facility] Right: Knee [employer] 07/02/2028 [id number] / / [id number] Cmpnt Fem Kn Rt Cr Cmnt Prm Vngrd Intlk Implanted:Qty: 1 on 12/06/2023 by Lew Leos MD at [facility] Right: Knee [employer] 07/11/2033 [id number] / / [id number] Tray Tib 83mm Kn Cocr I Beam Implanted:Qty: 1 on 12/06/2023 by Lew Leos MD at [facility] Right: Knee [employer] 01/12/2032 [id number] / / [id number] Tibial Insert 83mm X 14mm Implanted:Qty: 1 on 12/06/2023 by Lew Leos MD at [facility] Right: Knee [employer] 08/03/2027 [id number] / / [id number] Procedures * XR KNEE RIGHT 3VW(Performed 01/14/2024) Performed for Aftercare following right knee joint replacement surgery * VAS RIGHT VENOUS DUPLEX LE(Performed 12/26/2023) Performed for Leg edema, right * NEURAXIAL BLOCK(Performed 12/06/2023) * WI TOTAL KNEE REPLACEMENT(Performed 12/06/2023) * COMPREHENSIVE METABOLIC PANEL(Performed 10/03/2023) Performed for Pre-op evaluation * CBC W AUTO DIFFERENTIAL(Performed 10/03/2023) Performed for Pre-op evaluation * EKG 12-LEAD(Performed 10/03/2023) Performed for Pre-op evaluation * XR KNEE BILAT 3VW(Performed 08/06/2023) Performed for Status post right knee replacement, Status post left knee replacement * XR KNEE BILAT 3VW(Performed 12/12/2018) Performed for Acute pain of both knees * HGB HCT PANEL(Performed 04/21/2010) * HGB HCT PANEL(Performed 04/20/2010) * CARDIAC EKG ORDER(Performed 04/06/2010) * CULTURE MRSA(Performed 04/04/2010) Performed for Preoperative Examination * CULTURE MSSA(Performed 04/04/2010) Performed for Preoperative Examination * CBC W AUTO DIFFERENTIAL(Performed 04/04/2010) Performed for Preoperative Examination * COMPREHENSIVE METABOLIC PANEL(Performed 04/04/2010) Performed for Preoperative Examination Results * XR KNEE RIGHT 3VW (01/14/2024 2:46 PM CDT) Narrative [facility] [place] [address] - 01/14/2024 2:46 PM CDT Please see progress note in Epic for results. Lew Leos MD DIAGNOSTIC IMAGING O RDERABLES [facility] [address] * VAS RIGHT VENOUS DUPLEX LE (12/26/2023 10:37 AM CDT) Anatomical Region Laterality Modality Lower Extremity Ultrasound 12/26/2023 10:1 0 AM CDT Narrative Procedure Note Terry Aviles MD - 12/31/2023 [facility] [place] [facility] [address], [address] [place] [address] Lower Extremity Venous Ultrasound Report Pat.Name: GIOVANNYSherrillRUBEN Pat.ID: [id number] .Date: 12/26/2023 Refer.MD: ROXIE CANO Exam Time: 10:10:00 AM Study Type:LE Venous Age: 14 1955,68Y Sex: MALE Sonogrphr: Arnaldo Hogan RVT Pat. Stat.:Outpatient CPT - 4: 41439 Reason for Study: Swelling -Leg, right, Pain -Leg, right Procedures: Lower Extremity Venous - Right Race: 1 Visit ID: [id number] ++++++++++++++++++++++++++++++++++++ SUMMARY: ++++++++++++++++++++++++++++++++++++ No evidence of DVT in the right leg. Enlarged lymph nodes in the right groin. ++++++++++++++++++++++++++++++++++++ FINDINGS: ++++++++++++++++++++++++++++++++++++ Procedure: Venous duplex imaging of the right lower extremity was performed using color flow and spectral Doppler analysis. The contralateral common femoral vein was also examined. Study Quality: This study is of adequate technical quality. Rt Leg: All vessels seen appear patent and compressible. There was spontaneous and phasic flow seen in all the major veins of the right lower extremity. Appropriate augmentation with distal compression. No evidence of reflux with proximal compression. Comments: Enlarged lymph nodes were seen in the right groin. Signed 12/31/2023 02:54 PM Terry Aviles MD Issa Conklin PA-C VASCULAR LAB ORDERA BLES * Neuraxial Block (12/06/2023 12:04 PM CDT) Narrative Lionel Lewis, - 12/06/2023 12:04 PM CDT Amari Murray APRN-CRNA 12/06/2023 12:04 PM Neuraxial Block Note Pre-Procedure: Procedure Name: Neuraxial Block Patient Location: OR Anticoagulation/ Anti-thrombosis status confirmed? Yes Monitors: continuous pluse ox Patient Condition: sedated, meaningful contact maintained throughout procedure Procedure: Block Type: Spinal Prep: Betadine Approach: midline Spinal Block: Needle Type: spinal needle Needle Gauge: 22 Needle Length: 90 mm Placement Site: L3-4 Number of Attempts: 1 Degree of difficulty: none Procedure Tolerance: tolerated well Staff: Anesthesia Provider: Amari Murray APRN-CRNA - performed the procedure Lionel Lewis DO GENERAL ANESTHESIA O RDERABLES * (ABNORMAL) CBC W AUTO DIFFERENTIAL (10/03/2023 1:11 PM WAREHOUSE DELIVERY DRIVER) Only the most recent of2 resultswithin the time period is included. WBC 8.6 4.0 - 10.7 x10E9/L 10/03/2023 1:32 PM WAREHOUSE DELIVERY DRIVER [facility] RBC Count 5.67 4.30 - 5.80 x10E12/L 10/03/2023 1:32 PM WAREHOUSE DELIVERY DRIVER [facility] Hemoglobin 16.4 13.3 - 17.5 g/dL 10/03/2023 1:32 PM WAREHOUSE DELIVERY DRIVER [facility] Hematocrit 48.6 38.7 - 51.1 % 10/03/2023 1:32 PM WAREHOUSE DELIVERY DRIVER [facility] MCV 85.7 80.0 - 98.0 fL 10/03/2023 1:32 PM WAREHOUSE DELIVERY DRIVER [facility] MCH 28.9 26.7 - 33.6 pg 10/03/2023 1:32 PM WAREHOUSE DELIVERY DRIVER [facility] MCHC 33.7 31.7 - 36.3 g/dL 10/03/2023 1:32 PM WAREHOUSE DELIVERY DRIVER [facility] RDW-CV 12.7 11.3 - 14.8 % 10/03/2023 1:[address] [facility] Platelet Count 237 150 - 420 x10E9/L 10/03/2023 1:32 PM WAREHOUSE DELIVERY DRIVER [facility] MPV 9.2 7.8 - 11.4 fL 10/03/2023 1:32 PM WAREHOUSE DELIVERY DRIVER [facility] Neutrophil % 58.9 41.0 - 74.0 % 10/03/2023 1:32 PM WAREHOUSE DELIVERY DRIVER [facility] Lymphocyte % 23.5 17.0 - 47.0 % 10/03/2023 1:32 PM WAREHOUSE DELIVERY DRIVER [facility] Monocyte % 13.2(H) 3.0 - 11.0 % 10/03/2023 1:32 PM WAREHOUSE DELIVERY DRIVER [facility] Eosinophil % 3.5 0.0 - 7.0 % 10/03/2023 1:[address] [facility] Basophil % 0.5 0.0 - 1.6 % 10/03/2023 1:32 PM WAREHOUSE DELIVERY DRIVER [facility] Immature Granulocytes % 0.4 0.0 - 1.0 % 10/03/2023 1:[address] [facility] Neutrophil Absolute 5.04 1.60 - 7.50 x10E9/L 10/03/2023 1:[address] [facility] Lymphocyte Absolute 2.01 1.00 - 4.40 x10E9/L 10/03/2023 1:32 PM WAREHOUSE DELIVERY DRIVER [facility] Monocyte Absolute 1.13(H) 0.15 - 1.00 x10E9/L 10/03/2023 1:[address] [facility] Eosinophil Absolute 0.30 0.00 - 0.60 x10E9/L 10/03/2023 1:[address] [facility] Basophil Absolute 0.04 0.00 - 0.13 x10E9/L 10/03/2023 1:[address] [facility] Blood BLOOD SPECIMEN / Unknown Venipuncture / Unknown 10/03/2023 1:11 PM WAREHOUSE DELIVERY DRIVER 10/03/2023 1:27 PM WAREHOUSE DELIVERY DRIVER Flavia Chen ENTERPRISE PROJECT MANAGER-OFFICE CLEANER LAB - HEMATOLOGY ORDERABLES [facility] [address] [place] [address] * COMPREHENSIVE METABOLIC PANEL (10/03/2023 1:11 PM [facility]) Only the most recent of2 resultswithin the time period is included. [facility] Glucose 100 70 - 105 mg/dL 10/03/2023 1:[address] [facility] Sodium 140 136 - 145 mmol/L 10/03/2023 1:[address] [facility] Potassium 4.2 3.5 - 5.1 mmol/L 10/03/2023 1:[address] [facility] Chloride 105 98 - 107 mmol/L 10/03/2023 1:[address] [facility] CO2 27 22 - 29 mmol/L 10/03/2023 1:[address] [facility] Calcium 9.2 8.4 - 10.4 mg/dL 10/03/2023 1:[address] [facility] Anion Gap 8 6 - 16 mmol/L 10/03/2023 1:[address] [facility] BUN 21 7 - 26 mg/dL 10/03/2023 1:[address] [facility] Creatinine 0.92 0.72 - 1.25 mg/dL 10/03/2023 1:[address] [facility] Alkaline Phosphatase 74 40 - 150 U/L 10/03/2023 1:[address] [facility] ALT 21 0 - 55 U/L 10/03/2023 1:[address] [facility] AST 21 5 - 34 U/L 10/03/2023 1:[address] [facility] Protein Total 8.3 6.4 - 8.3 gm/dL 10/03/2023 1:[address] [facility] Albumin 4.0 3.4 - 5.0 gm/dL 10/03/2023 1:[address] [facility] Bilirubin Total 0.6 0.2 - 1.2 mg/dL 10/03/2023 1:[address] [facility] eGFR by CKD-EPI >90 >=90 mL/min/1.7 3 m2 10/03/2023 1:[address] [facility] Blood BLOOD SPECIMEN / Unknown Venipuncture / Unknown 10/03/2023 1:11 PM WAREHOUSE DELIVERY DRIVER 10/03/2023 1:27 PM WAREHOUSE DELIVERY DRIVER Flavia Chen APRN-OFFICE CLEANER LAB - CHEMISTRY O RDERABLES Performing Organization Address [facility] de Phone Number [facility] [address] [place] [address] * EKG 12-LEAD (10/03/2023 1:06 PM WAREHOUSE DELIVERY DRIVER) Ventricular Rate 71 BPM [facility] Atrial Rate 71 BPM [facility] P-R Interval 184 ms [facility] QRS Duration ms 96 ms [facility] Q-T Interval ms 388 ms [facility] QTC Calculation (Bezet) 421 ms [facility] Calculated P [place] 67 degrees [facility] Calculated R [place] -22 degrees [facility] Calculated T [place] 41 degrees [facility] Interpretation EKG Normal sinus rhythm Normal ECG Confirmed by JULIUS LARSON MD ([id number]) on 10/04/2023 10:24:26 PM [facility] 10/03/2023 1:06 PM WAREHOUSE DELIVERY DRIVER 10/04/2023 10:24 PM WAREHOUSE DELIVERY DRIVER Letitia Cruz DO ECG ORDERABLES Performing Organization Address [facility] de Phone Number [facility] * XR KNEE BILAT 3VW (08/06/2023 2:22 PM WAREHOUSE DELIVERY DRIVER) Only the most recent of2 resultswithin the time period is included. Narrative [facility] [place] [address] - 08/06/2023 2:22 PM WAREHOUSE DELIVERY DRIVER Please see progress note in Epic for results. Lew Leos MD DIAGNOSTIC IMAGING O RDERASANDY Performing Organization Address [facility] Co de Phone Number [facility] [place] [address] * (ABNORMAL) HGB HCT PANEL (04/21/2010 4:20 AM CDT) Only the most recent of2 resultswithin the time period is included. Hemoglobin 11.2(L) 13.0 - 18.0 gm/dl [facility] Hematocrit 33.0(L) 39.0 - 54.0 % [facility] BLOOD SPECIMEN / Unknown 04/21/2010 4:20 AM CDT 04/21/2010 4:26 AM CDT Lew Leos MD LAB - HEMATOLOGY ORD ERABLES Performing Organization Address [facility] Co de Phone Number [facility] [address] [place] [address] * CARDIAC EKG ORDER (04/06/2010 1:32 PM CDT) Narrative Procedure Note Document, Scanned - 04/06/2010 8:30 AM CDT Scanned Document CARDIAC SERVICES ORD ERABLES * CULTURE MSSA (04/04/2010 2:59 PM CDT) Result [facility] Comment: Final CULTURE No MSSA isolated. SPECIMEN FROM NASAL FOSSAE / Unknown 04/04/2010 2:59 PM CDT 04/04/2010 2:59 PM CDT Narrative Resulting Agency Comment Performed By [facility];[address] [place] [address] Lew Leos MD LAB - MICROBIOLOGY O RDERASANDY Performing Organization Address [facility] Co de Phone Number [facility] [id number] [place] [address] * CULTURE MRSA (04/04/2010 2:59 PM CDT) Result [facility] Comment: Final CULTURE No MRSA isolated SPECIMEN FROM NASAL FOSSAE / Unknown 04/04/2010 2:59 PM CDT 04/04/2010 2:59 PM CDT Narrative Resulting Agency Comment Performed By [facility];[address] [place] [address] Lew Leos MD LAB - MICROBIOLOGY O RDERABLES Performing Organization Address City/[facility] Co de Phone Number [facility] [address] [place] [address] Care Teams Medical Writer Relationship Specialty Start Date End Date Jennifer Christensen PA-C [address] [place] [address] PCP - General Physician Orchid Transplanter 10/03/23 Moo Triplett DO [address] [facility] [address] [place], [place] [id number] Internal Medicine 10/03/23
--- OUTSIDE RECORDS SUMMARY | 2024-10-05 15:38 | XMS_ITS | Encounter Summary ---
Author Organization [facility] Address [address] [place] [address] Phone Care Team Providers Care Chinese Herbalist Name Role Phone No, Physician Primary Care Provider Jennifer Christensen Primary Care Provider Royer Pierce MD Unavailable [phone] Royer Figueredo OT Unavailable Encounter Details Date Type Department Care Team (Latest Contact Info) Description 03/11/2018 Orders Only [facility] Scanning, Provider Social History Tobacco Use Types Packs/Day Years Used Date Smoking Tobacco: Former Sex and Gender Information Value Date Recorded Sex Assigned at Not on file 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 Gender Identity Not on file Sexual Orientation Not on file documented as of this encounter Plan of Treatment Not on file documented as of this encounter Procedures Procedure Name Priority Date/Time Associated Diagnosis Comments CARDIOLOGY DOCUMENT SCAN 03/11/2018 documented in this encounter Results * SCAN - CARDIOLOGY (03/11/2018) Anatomical Region Laterality Modality Other us Provider Scanning CV CARDIAC SERVICES PROCEDURES Final Result documented in this encounter Visit Diagnoses Not on filedocumented in this encounter Care Teams Chinese Herbalist Relationship Specialty Start Date End Date No, Physician PCP - General 12/11/18 09/13/22 Jennifer Christensen PA [address] [place] [address] PCP - General Physician Roadway Technician 09/14/22 Royer Pierce MD [address] LOWR LEVEL LOWER LEVEL [address] [place] [address] Referring Physician Orthopedic Surgery 09/14/22 Royer Figueredo OT [address] [address] Occupational Therapist Occupational Therapy 02/09/23 documented as of this encounter
[2024-10-05 15:49] VITALS: BP 132/58; PULSE 78; RESP 20; TEMP 36.8; O2SAT 94
--- OUTSIDE RECORDS SUMMARY | 2024-10-05 16:21 | XMS_ITS | Referral Summary ---
Author Organization [facility] Address [address] [facility] [place] [address] Care Team Providers Care Tank Filler Name Role Phone Jennifer Christensen PA-C Primary Care Provider [phone] Moo Triplett DO Unavailable Source Comments [facility],non-owned Affiliates and Associated Physician Practices is amultiple site organization consisting of ambulatory clinics and hospital sitesin [place], [place], [place] and [place]. This disclosure is being madepursuant to the Care Everywhere program and may not contain all information available regarding this patient. Last updated 18.[facility] Algolux Encounters Date Type Department Care Team Description 10/05/2024 3:37 PM CDT Emergency [facility] EMERGENCY DEPARTMENT [address] [place] [id number] from Last 3 Months Allergies Active Allergy [...] mouth once daily 02/13/2024 Active HYDROcodone-acetamin ophen ([place]) 10-325 MG tabletIndications:Ot her acute postprocedural pain [...] on file Medical Devices Implanted Type Area Color Control Supervisor Device Identifier Shelf Expiration Date Model / Serial / Lot Cmnt Bone Plc R 40gm Grn Implanted:Qty: 2 on 12/06/2023 by Lew Leos MD at [facility] Right: Knee [employer] 03/28/2026 [id number] / / [id number] Cmpnt Ptlr Std 31mm 3 Pg Kn Ser A Implanted:Qty: 1 on 12/06/2023 by Lew Leos MD at [facility] Right: Knee [employer]ig [employer] 07/02/2028 [id number] / / [id number] Cmpnt Fem Kn Rt Cr Cmnt Prm Vngrd Intlk Implanted:Qty: 1 on 12/06/2023 by Lwe Leos MD at [facility] Right: Knee [employer] 07/11/2033 [id number] / / [id number] Tray Tib 83mm Kn Cocr I Beam Implanted:Qty: 1 on 12/06/2023 by Lew Leos MD at [facility] Right: Knee [employer] 01/12/2032 [id number] / / [id number] Tibial Insert 83mm X 14mm Implanted:Qty: 1 on 12/06/2023 by Lew Leos MD at [facility] Right: Knee [employer] 08/03/2027 [id number] / / [id number] Procedures Procedure Name Priority Date/Time Associated Diagnosis Comments COMPREHENSIVE METABOLIC PANEL Routine 10/03/2023 1:11 PM BONE TENDER Pre-op evaluation from Last 3 Months or Most Recently Relevant to Health Maintenance Results * COMPREHENSIVE METABOLIC PANEL (10/03/2023 1:11 PM BONE TENDER) Pathologist [facility] Glucose 100 70 - 105 mg/dL 10/03/2023 1:48 PM BONE TENDER [facility] Sodium 140 136 - 145 mmol/L 10/03/2023 1:48 PM BONE TENDER [facility] Potassium 4.2 3.5 - 5.1 mmol/L 10/03/2023 1:48 PM BONE TENDER [facility] Chloride 105 98 - 107 mmol/L 10/03/2023 1:48 PM BONE TENDER [facility] CO2 27 22 - 29 mmol/L 10/03/2023 1:48 PM BONE TENDER [facility] Calcium 9.2 8.4 - 10.4 mg/dL 10/03/2023 1:48 PM BONE TENDER [facility] Anion Gap 8 6 - 16 mmol/L 10/03/2023 1:48 PM BONE TENDER [facility] BUN 21 7 - 26 mg/dL 10/03/2023 1:48 PM BONE TENDER [facility] Creatinine 0.92 0.72 - 1.25 mg/dL 10/03/2023 1:48 PM BONE TENDER [facility] Alkaline Phosphatase 74 40 - 150 U/L 10/03/2023 1:48 PM BONE TENDER [facility] ALT 21 0 - 55 U/L 10/03/2023 1:48 PM BONE TENDER [facility] AST 21 5 - 34 U/L 10/03/2023 1:48 PM BONE TENDER [facility] Protein Total 8.3 6.4 - 8.3 gm/dL 10/03/2023 1:48 PM BONE TENDER [facility] Albumin 4.0 3.4 - 5.0 gm/dL 10/03/2023 1:48 PM BONE TENDER [facility] Bilirubin Total 0.6 0.2 - 1.2 mg/dL 10/03/2023 1:48 PM BONE TENDER [facility] eGFR by CKD-EPI >90 >=90 mL/min/1.7 3 m2 10/03/2023 1:48 PM BONE TENDER [facility] Blood BLOOD SPECIMEN / Unknown Venipuncture / Unknown 10/03/2023 1:11 PM BONE TENDER 10/03/2023 1:27 PM BONE TENDER Flavia Chen ELECTRICIAN MARINE-RN PALLIATIVE LAB - CHEMISTRY O RDERABLES [facility] [address] [place] [address] from Last 3 Months or Most Recently Relevant to Health Maintenance Advance Directives * Full Code (Latest Code Status on File) Date Activated Date Inactivated Comments 12/06/2023 12:25 PM 12/07/2023 2:35 PM * Full Code Date Activated Date Inactivated Comments 04/19/2010 12:07 PM 04/23/2010 1:33 AM Care Teams Tank Filler Relationship Specialty Start Date End Date Jennifer Christensen PA-C [facility] [address] [address] PCP - General Physician Americanization Teacher 10/03/23 Moo Triplett DO [address] [facility] [address] [place] [address] Internal Medicine 10/03/23
--- OUTSIDE RECORDS SUMMARY | 2024-10-05 16:21 | XMS_ITS | Patient Health Summary ---
Author Organization [facility] Address [address] [place] [address] Care Team Providers Care Component Inspector Name Role Phone Jennifer Christensen PA-C Primary Care Provider [phone] Moo Triplett DO Unavailable Note from [facility],non-owned Affiliates and Associated Physician Practices is amultiple site organization consisting of ambulatory clinics and hospital sitesin [place], [place], [place] and [place]. This disclosure is being madepursuant to the Care Everywhere program and may not contain all information available regarding this patient. Last updated 18.[facility] Juices Allergies * Oxycodone(Unknown) -Low Criticality Medications * [...] tablet by mouth once daily * HYDROcodone-acetaminophen ([place]) 10-325 MG tablet(Started 12/07/2023) TAKE ONE-HALF TO [...] AM CDT Medical Devices Implanted Type Area Order Entry Device Identifier Shelf Expiration Date Model / Serial / Lot Cmnt Bone Plc R 40gm Grn Implanted:Qty: 2 on 12/06/2023 by Lew Leos MD at [facility] Right: Knee [employer] 03/28/2026 [id number] / / [id number] Cmpnt Ptlr Std 31mm 3 Pg Kn Ser A Implanted:Qty: 1 on 12/06/2023 by Lew Leos MD at [facility] Right: Knee [employer] 07/02/2028 [id number] / / [id number] Cmpnt Fem Kn Rt Cr Cmnt Prm Vngrd Intlk Implanted:Qty: 1 on 12/06/2023 by Lew Leos MD at [facility] Right: Knee [employer] 07/11/2033 [id number] / / [id number] Tray Tib 83mm Kn Cocr I Beam Implanted:Qty: 1 on 12/06/2023 by Lew Leos MD at [facility] Right: Knee [employer] 01/12/2032 [id number] / / [id number] Tibial Insert 83mm X 14mm Implanted:Qty: 1 on 12/06/2023 by Lew Leos MD at [facility] Right: Knee [employer] 08/03/2027 [id number] / / [id number] Procedures * XR KNEE RIGHT 3VW(Performed 01/14/2024) Performed for Aftercare following right knee joint replacement surgery * VAS RIGHT VENOUS DUPLEX LE(Performed 12/26/2023) Performed for Leg edema, right * NEURAXIAL BLOCK(Performed 12/06/2023) * MS TOTAL KNEE REPLACEMENT(Performed 12/06/2023) * COMPREHENSIVE METABOLIC [...] RIGHT 3VW (01/14/2024 2:46 PM CDT) Narrative [facility] [address] - 01/14/2024 2:46 PM CDT Please see progress note in Epic for results. Lew Leos MD DIAGNOSTIC IMAGING O RDERABLES [facility] [address] * VAS RIGHT VENOUS DUPLEX LE (12/26/2023 10:37 AM CDT) Anatomical Region Laterality Modality Lower Extremity Ultrasound 12/26/2023 10:1 0 AM CDT Narrative Procedure Note Terry Aviles MD - 12/31/2023 [facility] [place] [facility] [address], [address] [place] [address] Lower Extremity Venous Ultrasound Report Pat.Name: GIOVANNYSherrillRUBEN Pat.ID: [id number] .Date: 12/26/2023 Refer.MD: ROXIE CANO Exam Time: 10:10:00 AM Study Type:LE Venous Age: 14 1955,68Y Sex: MALE Sonogrphr: Arnaldo Hogan RVT Pat. Stat.:Outpatient CPT - 4: 14788 Reason for Study: Swelling -Leg, right, Pain -Leg, right Procedures: Lower Extremity Venous - Right Race: 1 Visit ID: [id number] ++++++++++++++++++++++++++++++++++++ SUMMARY: ++++++++++++++++++++++++++++++++++++ No evidence of DVT [...] CBC W AUTO DIFFERENTIAL (10/03/2023 1:11 PM CASHIER SUPERVISOR) Only the most recent of2 resultswithin the time period is included. WBC 8.6 4.0 - 10.7 x10E9/L 10/03/2023 1:32 PM CASHIER SUPERVISOR [facility] RBC Count 5.67 4.30 - 5.80 x10E12/L 10/03/2023 1:32 PM CASHIER SUPERVISOR [facility] Hemoglobin 16.4 13.3 - 17.5 g/dL 10/03/2023 1:32 PM CASHIER SUPERVISOR [facility] Hematocrit 48.6 38.7 - 51.1 % 10/03/2023 1:32 PM CASHIER SUPERVISOR [facility] MCV 85.7 80.0 - 98.0 fL 10/03/2023 1:32 PM CASHIER SUPERVISOR [facility] MCH 28.9 26.7 - 33.6 pg 10/03/2023 1:32 PM CASHIER SUPERVISOR [facility] MCHC 33.7 31.7 - 36.3 g/dL 10/03/2023 1:32 PM CASHIER SUPERVISOR [facility] RDW-CV 12.7 11.3 - 14.8 % 10/03/2023 1:32 PM [facility] Platelet Count 237 150 - 420 x10E9/L 10/03/2023 1:32 PM CASHIER SUPERVISOR [facility] MPV 9.2 7.8 - 11.4 fL 10/03/2023 1:32 PM CASHIER SUPERVISOR [facility] Neutrophil % 58.9 41.0 - 74.0 % 10/03/2023 1:32 PM CASHIER SUPERVISOR [facility] Lymphocyte % 23.5 17.0 - 47.0 % 10/03/2023 1:32 PM CASHIER SUPERVISOR [facility] Monocyte % 13.2(H) 3.0 - 11.0 % 10/03/2023 1:32 PM CASHIER SUPERVISOR [facility] Eosinophil % 3.5 0.0 - 7.0 % 10/03/2023 1:32 PM [facility] Basophil % 0.5 0.0 - 1.6 % 10/03/2023 1:32 PM CASHIER SUPERVISOR [facility] Immature Granulocytes % 0.4 0.0 - 1.0 % 10/03/2023 1:32 PM [facility] Neutrophil Absolute 5.04 1.60 - 7.50 x10E9/L 10/03/2023 1:32 PM [facility] Lymphocyte Absolute 2.01 1.00 - 4.40 x10E9/L 10/03/2023 1:32 PM CASHIER SUPERVISOR [facility] Monocyte Absolute 1.13(H) 0.15 - 1.00 x10E9/L 10/03/2023 1:32 PM [facility] Eosinophil Absolute 0.30 0.00 - 0.60 x10E9/L 10/03/2023 1:32 PM [facility] Basophil Absolute 0.04 0.00 - 0.13 x10E9/L 10/03/2023 1:32 PM [facility] Blood BLOOD SPECIMEN / Unknown Venipuncture / Unknown 10/03/2023 1:11 PM CASHIER SUPERVISOR 10/03/2023 1:27 PM CASHIER SUPERVISOR Flavia Chen STORE CUSTODIAN-TELECOMMUNICATION EQUIPMENT REPAIRER LAB - HEMATOLOGY ORDERABLES [facility] [address] [place] [address] * COMPREHENSIVE METABOLIC PANEL (10/03/2023 1:11 PM [facility]) Only the most recent of2 resultswithin the time period is included. [facility] Glucose 100 70 - 105 mg/dL 10/03/2023 1:48 PM [facility] Sodium 140 136 - 145 mmol/L 10/03/2023 1:48 PM [facility] Potassium 4.2 3.5 - 5.1 mmol/L 10/03/2023 1:48 PM [facility] Chloride 105 98 - 107 mmol/L 10/03/2023 1:48 PM [facility] CO2 27 22 - 29 mmol/L 10/03/2023 1:48 PM [facility] Calcium 9.2 8.4 - 10.4 mg/dL 10/03/2023 1:48 PM [facility] Anion Gap 8 6 - 16 mmol/L 10/03/2023 1:48 PM [facility] BUN 21 7 - 26 mg/dL 10/03/2023 1:48 PM [facility] Creatinine 0.92 0.72 - 1.25 mg/dL 10/03/2023 1:48 PM [facility] Alkaline Phosphatase 74 40 - 150 U/L 10/03/2023 1:48 PM [facility] ALT 21 0 - 55 U/L 10/03/2023 1:48 PM [facility] AST 21 5 - 34 U/L 10/03/2023 1:48 PM [facility] Protein Total 8.3 6.4 - 8.3 gm/dL 10/03/2023 1:48 PM [facility] Albumin 4.0 3.4 - 5.0 gm/dL 10/03/2023 1:48 PM [facility] Bilirubin Total 0.6 0.2 - 1.2 mg/dL 10/03/2023 1:48 PM [facility] eGFR by CKD-EPI >90 >=90 mL/min/1.7 3 m2 10/03/2023 1:48 PM [facility] Blood BLOOD SPECIMEN / Unknown Venipuncture / Unknown 10/03/2023 1:11 PM CASHIER SUPERVISOR 10/03/2023 1:27 PM CASHIER SUPERVISOR Flavia Chen APRN-TELECOMMUNICATION EQUIPMENT REPAIRER LAB - CHEMISTRY O RDERABLES Performing Organization Address [facility] de Phone Number [facility] [address] [place] [address] * EKG 12-LEAD (10/03/2023 1:06 PM CASHIER SUPERVISOR) Ventricular Rate 71 BPM [facility] Atrial Rate 71 BPM [facility] P-R Interval 184 ms [facility] QRS Duration ms 96 ms [facility] Q-T Interval ms 388 ms [facility] QTC Calculation (Bezet) 421 ms [facility] Calculated P [place] 67 degrees [facility] Calculated R [place] -22 degrees [facility] Calculated T [place] 41 degrees [facility] Interpretation EKG Normal sinus rhythm Normal ECG Confirmed by JULIUS LARSON MD ([id number]) on 10/04/2023 10:24:26 PM [facility] 10/03/2023 1:06 PM CASHIER SUPERVISOR 10/04/2023 10:24 PM CASHIER SUPERVISOR Letitia Cruz DO ECG ORDERABLES Performing Organization Address [facility] de Phone Number [facility] * XR KNEE BILAT 3VW (08/06/2023 2:22 PM CASHIER SUPERVISOR) Only the most recent of2 resultswithin the time period is included. Narrative [facility] [address] - 08/06/2023 2:22 PM CASHIER SUPERVISOR Please see progress note in Epic for results. Lew Leos MD DIAGNOSTIC IMAGING O RDERASANDY Performing Organization Address [facility] de Phone Number [facility] [address] * (ABNORMAL) HGB HCT PANEL (04/21/2010 4:20 AM CDT) Only the most recent of2 resultswithin the time period is included. Hemoglobin 11.2(L) 13.0 - 18.0 gm/dl [facility] Hematocrit 33.0(L) 39.0 - 54.0 % [facility] BLOOD SPECIMEN / Unknown 04/21/2010 4:20 AM CDT 04/21/2010 4:26 AM CDT Lew Leos MD LAB - HEMATOLOGY ORD ERABLES Performing Organization Address [facility] de Phone Number [facility] [address] [place] [address] * CARDIAC EKG ORDER (04/06/2010 1:32 PM CDT) Narrative Procedure Note Document, Scanned - 04/06/2010 8:30 AM CDT Scanned Document CARDIAC SERVICES ORD ERABLES * CULTURE MSSA (04/04/2010 2:59 PM CDT) Result [facility] Comment: Final CULTURE No MSSA isolated. SPECIMEN FROM NASAL FOSSAE / Unknown 04/04/2010 2:59 PM CDT 04/04/2010 2:59 PM CDT Narrative Resulting Agency Comment Performed By [facility];[address] [place] [address] Lew Leos MD LAB - MICROBIOLOGY O RDERASANDY Performing Organization Address [facility] de Phone Number [facility] [id number] [place] [address] * CULTURE MRSA (04/04/2010 2:59 PM CDT) Result [facility] Comment: Final CULTURE No MRSA isolated SPECIMEN FROM NASAL FOSSAE / Unknown 04/04/2010 2:59 PM CDT 04/04/2010 2:59 PM CDT Narrative Resulting Agency Comment Performed By [facility];[address] [place] [address] Lew Leos MD LAB - MICROBIOLOGY O RDERABLES Performing Organization Address City/[facility] de Phone Number [facility] [address] [place] [address] Care Teams Component Inspector Relationship Specialty Start Date End Date Jennifer Christensen PA-C [address] [place] [address] PCP - General Physician Safety Officer 10/03/23 Moo Triplett DO [address] [facility] [address] [place], [place] [id number] Internal Medicine 10/03/23
--- OUTSIDE RECORDS SUMMARY | 2024-10-05 16:21 | XMS_ITS | Clinical Summary ---
Author Organization [facility] Address [address] [place] [address] Care Team Providers Care Xray Tech Name Role Phone Jennifer Christensen Primary Care Provider [phone] Royer Pierce MD Unavailable [phone] Royer Figueredo OT Unavailable [phone] Allergies Active Allergy Reactions Criticality Noted Date [...] (10/11/2022): Added automatically from request for surgery [id number] PVC (premature ventricular contraction) 01/07/20 20 Surgical [...] on file Legal Sex Male 4:40 AM CUSTOMER CONTACT SPECIALIST Gender Identity Not on file Sexual Orientation [...] 07/04/2018, 2009 Medical Devices Implanted Type Area Travel Registered Nurse Icu Device Identifier Shelf Expiration Date Model / Serial / Lot Ethicon Endo Surgery Ligaclip Extra 2.6mm Ligate Open Small Clip Internal Titanium Latex Free Lt100 - Sna - [id number] Implanted:Qty: 1 on 10/24/2022 by Letitia Bunch MD at [facility] Clip Left: Forearm Eth[employer] Endo Surgery [id number] 07/28/2027 LT100 / NA / [id number] Ethicon Endo Surgery Ligaclip Extra 3.2mm Ligate Open Medium Clip Internal Titanium Latex Free Lt200 - Sna - [id number] Implanted:Qty: 1 on 10/24/2022 by Letitia Bunch MD at [facility] Clip Left: Forearm Ethicon Endo Surgery [id number] 05/28/2027 LT200 / NA / [id number] Ethicon Endo Surgery Ligaclip Extra 2.6mm Ligate Open Small Clip Internal Titanium Latex Free Lt100 - Sna - [id number] Implanted:Qty: 1 on 10/24/2022 by Letitia Bunch MD at [facility] Clip Left: Forearm Eth[employer] Endo Surgery [id number] 07/28/2027 LT100 / NA / [id number] Ethicon Endo Surgery Ligaclip Extra 3.2mm Ligate Open Medium Clip Internal Titanium Latex Free Lt200 - Sna - [id number] Implanted:Qty: 1 on 10/24/2022 by Letitia Bunch MD at [facility] Clip Left: Forearm Ethicon Endo Surgery [id number] 05/28/2027 LT200 / NA / [id number] Lt Total Knee Replacement Left: Knee Eth[employer] Endo Surgery Ligaclip Extra 2.6mm Ligate Open Small Clip Internal Titanium Latex Free Lt100 - [id number] Implanted:Qty: 1 on 10/24/2022 by Homer Talamantes MD at [facility] Medicine Left: Arm Ethicon Endo Surgery [id number] 04/27/2027 LT100 / / [id number] [employer] Avance 2-3mm 50mm Allograft Multiple Clean Graft Soft Tissue [id number] - Sna - [id number] Implanted:Qty: 1 on 10/24/2022 by Letitia Bunch MD at [facility] Left: Hand [employer] 10/26/2024 [id number] / NA / [id number] Insurance [facility] Advance Directives For more information, please contact: [phone] * Full Code (Latest Code Status on File) Date Activated Date Inactivated Comments 10/24/2022 5:24 PM 10/25/2022 2:16 PM Care Teams Xray Tech Relationship Specialty Start Date End Date Jennifer Christensen PA [address] [place] [address] PCP - General Physician Jalousie Installer 09/14/22 Royer Pierce MD [address]EVEL LOWER L[address] [place] [address] Referring Physician Orthopedic Surgery 09/14/22 Royer Figueredo OT [address] [facility] [address] [place] [address] Occupational Therapist Occupational Therapy 02/09/23
--- OUTSIDE RECORDS SUMMARY | 2024-10-05 16:21 | XMS_ITS | Encounter Summary ---
Author Organization [facility] Address [address] [place] [address] Phone Care Team Providers Care Solder Technician Name Role Phone No, Physician Primary Care Provider Jennifer Christensen Primary Care Provider Royer Pierce MD Unavailable [phone] Royer Figueredo OT Unavailable Encounter Details Date Type Department Care Team (Latest Contact Info) Description 10/21/2017 Orders Only [facility] Scanning, Provider Social History Tobacco Use Types Packs/Day Years Used Date Smoking Tobacco: Never Assessed Sex and Gender Information Value Date Recorded Sex Assigned at Not on file Legal Sex Male 4:40 AM PURCHASING SUPERVISOR Gender Identity Not on file Sexual Orientation [...] on filedocumented in this encounter Care Teams Solder Technician Relationship Specialty Start Date End Date No, Physician PCP - General 12/11/18 09/13/22 Jennifer Christensen PA [address] [place] [address] PCP - General Physician Middle School Spanish Teacher 09/14/22 Royer Pierce MD [address] LOWR LEVEL LOWER LEVEL [address] [place] [address] Referring Physician Orthopedic Surgery 09/14/22 Royer Figueredo OT [address] [address] Occupational Therapist Occupational Therapy 02/09/23 documented as of this encounter
--- OUTSIDE RECORDS SUMMARY | 2024-10-05 16:21 | XMS_ITS | Clinical Summary ---
Author Organization [facility] Address [facility] [place] [address] Care Team Providers Care Histology Assistant Name Role Phone Jennifer Christensen Primary Care Provider [phone] Allergies No known active allergies Medications metoprolol [...] 08/20/2019 Hypotension 08/20/2019 Septic arthritis of ankle ([facility]) 06/28 History [...] Sex Assigned at Male 08/20/2019 6:33 PM VENEER GRADER Legal Sex Male 7:08 PM CDT Gender Identity Male 08/20/2019 6:33 PM VENEER GRADER Sexual Orientation Straight 08/20/2019 6: 33 PM VENEER GRADER Last Filed Vital Signs Vital Sign Reading Time Taken Comments Blood Pressure 131/69 08/21/2019 8:29 AM VENEER GRADER Pulse 81 08/21/2019 7:00 AM VENEER GRADER Temperature 37.1 C (98.7 F) 08/21/2019 7:00 AM VENEER GRADER Respiratory Rate 16 08/21/2019 7:00 AM VENEER GRADER Oxygen Saturation 94% 08/21/2019 3:16 AM VENEER GRADER Inhaled Oxygen Concentration - - Weight 124.8 kg (275 lb 2.2 oz) 08/21/2019 3:12 AM VENEER GRADER Height 182.9 cm (6') 08/20/2019 6:30 PM VENEER GRADER Body Mass Index 37.31 08/20/2019 6:30 PM VENEER GRADER Plan of Treatment Health Maintenance Due Date [...] Problems Recent Progress Patient-Stated? Author HOME TO [facility] No Porsha Walker, RN Insurance MEDICARE PART A Member Subscriber Plan / Payer (Ef fective 2023-Present) Name:Amos Liu Relation to Subscriber:Self Name:Amos Liu Payer ID:Not on file Group ID:Not on file Type:Indemnity Address: [facility] [address] [place], [place] [employer] Advance Directives * Full Code (Latest Code Status on File) Date Activated Date Inactivated Comments 08/20/2019 4:49 PM 08/21/2019 4:35 PM * Full Code Date Activated Date Inactivated Comments 07/11/2019 9:40 AM 07/16/2019 7:06 PM Care Teams Histology Assistant Relationship Specialty Start Date End Date Jennifer Christensen PA PCP - General PHYSICIAN VARITYPIST 01/11/19
--- OUTSIDE RECORDS SUMMARY | 2024-10-05 16:21 | XMS_ITS | Clinical Summary ---
Author Organization [facility] Address [address] [place] [address] Care Team Providers Care General Ledger Bookkeeper Name Role Phone Jennifer Christensen PA-C Primary Care Provider [phone] Moo Triplett DO Unavailable Source Comments [facility],non-owned Affiliates and Associated Physician Practices is amultiple site organization consisting of ambulatory clinics and hospital sitesin [place], [place], [place] and [place]. This disclosure is being madepursuant to the Care Everywhere program and may not contain all information available regarding this patient. Last updated 18.[facility] Allergies Active Allergy Reactions Criticality Noted Date [...] mouth once daily 02/13/2024 Active HYDROcodone-acetamin ophen ([place]) 10-325 MG tabletIndications:Ot her acute postprocedural pain [...] Team Description 10/05/2024 3:37 PM CDT Emergency [facility] EMERGENCY DEPARTMENT [address] [place] [address] from Last 3 Months Immunizations Name Administration [...] this topic Medical Devices Implanted Type Area Research And Development Engineer Device Identifier Shelf Expiration Date Model / Serial / Lot Cmnt Bone Plc R 40gm Grn Implanted:Qty: 2 on 12/06/2023 by Lew Leos MD at [facility] Right: Knee [employer] 03/28/2026 [id number] / / [id number] Cmpnt Ptlr Std 31mm 3 Pg Kn Ser A Implanted:Qty: 1 on 12/06/2023 by Lew Leos MD at [facility] Right: Knee [employer] 07/02/2028 [id number] / / [id number] Cmpnt Fem Kn Rt Cr Cmnt Prm Vngrd Intlk Implanted:Qty: 1 on 12/06/2023 by Lew Leos MD at [facility] Right: Knee [employer] 07/11/2033 [id number] / / [id number] Tray Tib 83mm Kn Cocr I Beam Implanted:Qty: 1 on 12/06/2023 by Lew Leos MD at [facility] Right: Knee [employer] 01/12/2032 [id number] / / [id number] Tibial Insert 83mm X 14mm Implanted:Qty: 1 on 12/06/2023 by Lew Leos MD at [facility] Right: Knee [employer] 08/03/2027 [id number] / / [id number] Procedures Procedure Name Priority Date/Time Associated Diagnosis Comments COMPREHENSIVE METABOLIC PANEL Routine 10/03/2023 1:11 PM SPECIAL DELIVERY WORKER Pre-op evaluation from Last 3 Months or Most Recently Relevant to Health Maintenance Results * COMPREHENSIVE METABOLIC PANEL (10/03/2023 1:11 PM SPECIAL DELIVERY WORKER) Glucose 100 70 - 105 mg/dL 10/03/2023 1:48 PM SPECIAL DELIVERY WORKER [facility] Sodium 140 136 - 145 mmol/L 10/03/2023 1:48 PM SPECIAL DELIVERY WORKER [facility] Potassium 4.2 3.5 - 5.1 mmol/L 10/03/2023 1:48 PM SPECIAL DELIVERY WORKER [facility] Chloride 105 98 - 107 mmol/L 10/03/2023 1:48 PM SPECIAL DELIVERY WORKER [facility] CO2 27 22 - 29 mmol/L 10/03/2023 1:48 PM SPECIAL DELIVERY WORKER [facility] Calcium 9.2 8.4 - 10.4 mg/dL 10/03/2023 1:48 PM SPECIAL DELIVERY WORKER [facility] Anion Gap 8 6 - 16 mmol/L 10/03/2023 1:48 PM SPECIAL DELIVERY WORKER [facility] BUN 21 7 - 26 mg/dL 10/03/2023 1:48 PM SPECIAL DELIVERY WORKER [facility] Creatinine 0.92 0.72 - 1.25 mg/dL 10/03/2023 1:48 PM SPECIAL DELIVERY WORKER [facility] Alkaline Phosphatase 74 40 - 150 U/L 10/03/2023 1:48 PM SPECIAL DELIVERY WORKER [facility] ALT 21 0 - 55 U/L 10/03/2023 1:48 PM SPECIAL DELIVERY WORKER [facility] AST 21 5 - 34 U/L 10/03/2023 1:48 PM SPECIAL DELIVERY WORKER [facility] Protein Total 8.3 6.4 - 8.3 gm/dL 10/03/2023 1:48 PM SPECIAL DELIVERY WORKER [facility] Albumin 4.0 3.4 - 5.0 gm/dL 10/03/2023 1:48 PM SPECIAL DELIVERY WORKER [facility] Bilirubin Total 0.6 0.2 - 1.2 mg/dL 10/03/2023 1:48 PM SPECIAL DELIVERY WORKER [facility] eGFR by CKD-EPI >90 >=90 mL/min/1.7 3 m2 10/03/2023 1:48 PM SPECIAL DELIVERY WORKER [facility] Blood BLOOD SPECIMEN / Unknown Venipuncture / Unknown 10/03/2023 1:11 PM SPECIAL DELIVERY WORKER 10/03/2023 1:27 PM SPECIAL DELIVERY WORKER Flavia Chen GRADUATE CIVIL ENGINEER-CYCLE MANAGER LAB - CHEMISTRY O RDERABLES [facility] [address] [place] [address] from Last 3 Months or Most Recently Relevant to Health Maintenance Advance Directives * Full Code (Latest Code Status on File) Date Activated Date Inactivated Comments 12/06/2023 12:25 PM 12/07/2023 2:35 PM * Full Code Date Activated Date Inactivated Comments 04/19/2010 12:07 PM 04/23/2010 1:33 AM Care Teams General Ledger Bookkeeper Relationship Specialty Start Date End Date Jennifer Christensen PA-C [address] [place] [id number] PCP - General Physician Enrolled Agent 10/03/23 Moo Triplett DO [address] [facility] [address] [place] [address] Internal Medicine 10/03/23
--- OUTSIDE RECORDS SUMMARY | 2024-10-05 16:21 | XMS_ITS | Encounter Summary ---
Author Organization [facility] Address [address] [place] [address] Care Team Providers Care Seating And Mobility Technologist Name Role Phone Jennifer Christensen Primary Care Provider [phone] Encounter Details Date Type Department Care Team (Late st Contact Info) Description 07/21/2019 RX Orders Only [facility] [address] [place] [address] Elzbieta Phan, PharmD Social History Tobacco Use [...] Sex Assigned at Male 08/20/2019 6:33 PM OCCUPATIONAL HEALTH PHYSIOTHERAPIST Legal Sex Male 7:08 PM CDT Gender Identity Male 08/20/2019 6:33 PM OCCUPATIONAL HEALTH PHYSIOTHERAPIST Sexual Orientation Straight 08/20/2019 6: 33 PM OCCUPATIONAL HEALTH PHYSIOTHERAPIST documented as of this encounter Functional Status * RETIRED Are you deaf or do you have serious difficulty hearing Answer Date of Assessment Author Status No 07/11/2019 9:04 AM OCCUPATIONAL HEALTH PHYSIOTHERAPIST Acti ve documented as of this encounter Plan of Treatment Not on file documented as of this encounter Visit Diagnoses Not on filedocumented in this encounter Care Teams Seating And Mobility Technologist Relationship Specialty Start Date End Date Jennifer Christensen PA PCP - General PHYSICIAN CHANNEL REBUILDER 01/11/19 documented as of this encounter
--- OUTSIDE RECORDS SUMMARY | 2024-10-05 16:21 | XMS_ITS | Encounter Summary ---
Author Organization [facility] Address [address] [place] [address] Care Team Providers Care Nursing Program Director Name Role Phone Jennifer Christensen Primary Care Provider [phone] Encounter Details Date Type Department Care Team (Late st Contact Info) Description 07/16/2019 Therapy Plan [facility] [address] [place] [address] [place] [address] [place] [address] Social History Tobacco Use Types Packs/Day Years [...] Sex Assigned at Male 08/20/2019 6:33 PM SWING DRIVER Legal Sex Male 7:08 PM CDT Gender Identity Male 08/20/2019 6:33 PM SWING DRIVER Sexual Orientation Straight 08/20/2019 6: 33 PM SWING DRIVER documented as of this encounter Functional Status * RETIRED Are you deaf or do you have serious difficulty hearing Answer Date of Assessment Author Status No 07/11/2019 9:04 AM SWING DRIVER Activ e documented as of this encounter Plan of Treatment Not on file documented as of this encounter Visit Diagnoses Not on filedocumented in this encounter Care Teams Nursing Program Director Relationship Specialty Start Date End Date Jennifer Christensen PA PCP - General PHYSICIAN TOY MECHANIC 01/11/19 documented as of this encounter
--- OUTSIDE RECORDS SUMMARY | 2024-10-05 16:21 | XMS_ITS | Encounter Summary ---
Author Organization [facility] Address [address] [place] [address] Phone Care Team Providers Care Tanyard Worker Name Role Phone No, Physician Primary Care Provider [phone] Jennifer Christensen Primary Care Provider Royer Pierce MD Unavailable [phone] Royer Figueredo OT Unavailable Encounter Details Date Type Department Care Team (Latest Contact Info) Description 03/11/2018 Orders Only [facility] Scanning, Provider Social History Tobacco Use Types Packs/Day Years Used Date Smoking Tobacco: Former Sex and Gender Information Value Date Recorded Sex Assigned at Not on file Legal Sex Male 4:40 AM CLINICAL TEAM MANAGER Gender Identity Not on file Sexual Orientation [...] on filedocumented in this encounter Care Teams Tanyard Worker Relationship Specialty Start Date End Date No, Physician PCP - General 12/11/18 09/13/22 Jennifer Christensen PA [address] [place] [address] PCP - General Physician Nitrocellulose Operator 09/14/22 Royer Pierce MD [address] LOWR LEVEL LOWER LEVEL [address] [place] [address] Referring Physician Orthopedic Surgery 09/14/22 Royer Figueredo OT [address] [address] Occupational Therapist Occupational Therapy 02/09/23 documented as of this encounter
--- OUTSIDE RECORDS SUMMARY | 2024-10-05 16:21 | XMS_ITS | Encounter Summary ---
Author Organization [facility] Address [address] [facility] [place] [address] Care Team Providers Care Magneto Electrician Name Role Phone Jennifer Christensen PA-C Primary Care Provider [phone] Moo Triplett DO Unavailable Encounter Details Date Type Department Care Team (Late st Contact Info) Description 10/05/2024 3:37 PM CDT Emergency [facility] EMERGENCY DEPARTMENT [address] [place] [id number] Social History Tobacco Use Types Packs/Day Years [...] on filedocumented in this encounter Care Teams Magneto Electrician Relationship Specialty Start Date End Date Jennifer Christensen PA-C [address] [address] PCP - General Physician Wood Milling Machine Hand 10/03/23 Moo Triplett DO [address] [place] [address] Internal Medicine 10/03/23 documented as of this encounter
--- OUTSIDE RECORDS SUMMARY | 2024-10-05 16:21 | XMS_ITS | Referral Summary ---
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 Gender Identity Not on file Sexual Orientation [...] on file Medical Devices Implanted Type Area Pepper Picker Device Identifier Shelf Expiration Date Model / Serial / Lot Ethicon Endo Surgery Ligaclip Extra 2.6mm Ligate Open Small Clip Internal Titanium Latex Free Lt100 - Sna - [id number] Implanted:Qty: 1 on 10/24/2022 by Letitia Bunch MD at [facility] Clip Left: Forearm Ethicon Endo Surgery [id number] 07/28/2027 LT100 / NA / [id number] Ethicon Endo Surgery Ligaclip Extra 3.2mm Ligate Open Medium Clip Internal Titanium Latex Free Lt200 - Sna - [id number] Implanted:Qty: 1 on 10/24/2022 by Letitia Bunch MD at [facility] Clip Left: Forearm [employer] Endo Surgery [id number] 05/28/2027 LT200 / NA / [id number] Ethicon Endo Surgery Ligaclip Extra 2.6mm Ligate Open Small Clip Internal Titanium Latex Free Lt100 - Sna - [id number] Implanted:Qty: 1 on 10/24/2022 by Letitia Bunch MD at [facility] Clip Left: Forearm Ethicon Endo Surgery [id number] 07/28/2027 LT100 / NA / [id number] Ethicon Endo Surgery Ligaclip Extra 3.2mm Ligate Open Medium Clip Internal Titanium Latex Free Lt200 - Sna - [id number] Implanted:Qty: 1 on 10/24/2022 by Letitia Bunch MD at [facility] Clip Left: Forearm Ethicon Endo Surgery [id number] 05/28/2027 LT200 / NA / [id number] Lt Total Knee Replacement Left: Knee Ethicon Endo Surgery Ligaclip Extra 2.6mm Ligate Open Small Clip Internal Titanium Latex Free Lt100 - [id number] Implanted:Qty: 1 on 10/24/2022 by Homer Talamantes MD at [facility] Left: Arm Ethicon Endo Surgery [id number] 04/27/2027 LT100 / / [id number] [employer] Avance 2-3mm 50mm Allograft Multiple Clean Graft Soft Tissue [id number] - Sna - [id number] Implanted:Qty: 1 on 10/24/2022 by Letitia Bunch MD at [facility] Left: Hand [employer] 10/26/2024 [id number] / NA / [id number] Insurance [employer] [place] [employer] [place] Advance Directives For more information, please contact: [phone] * Full Code (Latest Code Status on File) Date Activated Date Inactivated Comments 10/24/2022 5:24 PM 10/25/2022 2:16 PM Care Teams Red Leader Relationship Specialty Start Date End Date Jennifer Christensen PA [address] [place] [address] PCP - General Physician Employee Relation Manager 09/14/22 Royer Pierce MD [address]OWER [address] [place] [address] Referring Physician Orthopedic Surgery 09/14/22 Royer Figueredo OT [address] [address] Occupational Therapist Occupational Therapy 02/09/23
== END 2024-10-05 15:49 | disposition short-term general hospital (02) ==
PROVIDERS: Emergency Provider Emergency Medicine; PCP Physician Assistant Medical
DX: S92.422B Displaced fracture of distal phalanx of left great toe, initial encounter for open fracture (principal); S92.502B Displaced unspecified fracture of left lesser toe(s), initial encounter for open fracture; S92.592B Other fracture of left lesser toe(s), initial encounter for open fracture; I11.0 Hypertensive heart disease with heart failure; I50.9 Heart failure, unspecified; Z87.891 Personal history of nicotine dependence; Y99.0 Civilian activity done for income or pay; W20.8XXA Other cause of strike by thrown, projected or falling object, initial encounter
CPT/HCPCS: 73700; 99284

== ENCOUNTER 2025-02-18 13:22 | Outpatient (CLI) | payer OTHER, SELFPAY ==
--- NOTE | ~2025-02-18 | MR_ITS ---
MRI of the cervical spine Clinical History: Cervicalgia Technique: Axial T2-weighted and gradient images, and sagittal T1-weighted, T2-weighted, and STIR alirio ges were acquired. Findings: There is no acute fracture or subluxation of the cervical spine. Vertebral bodies maintain normal height and alignment. No suspicious bone marrow signal abnormality seen. There are extensive a nterior flowing osteophytes from C2 through T2, compatible with extensive DISH. At C2-C3, there is mild disc osteophyte complex. There is bilateral facet arthropathy, left worse kena n right. Probable left neural foraminal narrowing, mild in degree. Right neural foramen preserved. No canal stenosis or cord compression. At C3-C4, there is disc osteophyte complex with moderate canal stenosis but no jung cord compression . There is probable mild left neural foraminal narrowing. Right neural foramen preserved. At C4-C5, there is central disc bulge without jung canal stenosis or cord compression. Bilateral sommer ral foramina are preserved. At C5-C6, there is minimal disc osteophyte complex. No definite canal stenosis, cord compression, or neural foraminal narrowing. At C6-C7, there is mild disc osteophyte complex. No definite canal stenosis, cord compression, or sommer ral foraminal narrowing. No abnormal signal seen in the spinal cord. Paravertebral soft tissues are unremarkable. Impression: Extensive DISH, as detailed above. [id number] degenerative spondylosis at C3-C4. Mild degenerative change in the remainder of the cervical spine, as above. Reviewed, dictated and finalized at [facility]. Impression: Extensive DISH, as detailed above. [id number] degenerative spondylosis at C3-C4. Mild degenerative change in the remainder of the cervical spine, as above.
--- NOTE | ~2025-02-18 | MR_ITS ---
MRI of the lumbar spine Clinical History: Back pain Technique: Axial T2-weighted images, and sagittal T1-weighted, T2-weighted, and T2 fat-sat images wer e acquired. Findings: No acute fracture seen. There is minimal grade 1 retrolisthesis of L2 over L3. No suspiciou s bone marrow signal abnormality seen. At L1-L2, there is moderate degenerative disc narrowing with mild disc bulge and mild facet hypertrop hy. No jung spinal canal stenosis. There is mild right neural foraminal narrowing. Left neural piper en preserved. At L2-L3, there is moderate degenerative disc narrowing. Disc bulge and moderate facet arthropathy re sult in severe spinal canal stenosis/thecal sac compression. There is severe left neural foraminal na rrowing, and moderate to severe right neural foraminal narrowing. At L3-L4, there is degenerative disc narrowing, with diffuse disc bulge and advanced facet arthropath y. There is moderate to severe spinal canal stenosis ostial sac compression. There is severe bilatera l neural foraminal comprise. At L4-L5, there is moderate degenerative disc narrowing. There is diffuse disc bulge with more promin ent protrusion at the left paracentral to left foraminal region. There is advanced facet arthropathy. There is mild central canal stenosis. There is severe bilateral neural foraminal compromise. At L5-S1, there is moderate degenerative disc narrowing with diffuse disc bulge and advanced facet ar thropathy. No jung central canal stenosis. There is severe right neural foraminal narrowing, and mod erate to severe left neural foraminal narrowing. Paravertebral soft tissues are unremarkable. Impression: Severe degenerative spondylosis throughout the lumbar spine, as detailed above. Reviewed, dictated and finalized at [facility]. Impression: Severe degenerative spondylosis throughout the lumbar spine, as detailed above.
--- NOTE | ~2025-02-18 | MR_ITS ---
MRI of the thoracic spine Clinical History: Pain Technique: Axial T2-weighted and gradient images, and sagittal T1-weighted, T2-weighted, and STIR alirio ges were acquired. Findings: There is no fracture or subluxation of the thoracic spine. Vertebral bodies maintain normal height and alignment. No suspicious bone marrow signal abnormality seen. At T1-T2, there is degenerative disc narrowing with mild disc osteophyte complex. No jung canal sten osis or cord compression. Possible mild bilateral neural foraminal narrowing at this level. At T2-T3, there is disc osteophyte complex, especially at the right paracentral to right foraminal re gion. There is probable moderate right neural foraminal narrowing. There is mild to moderate canal st enosis without jung cord compression. Left neural foramen preserved. No other significant disc bulge or herniation seen in the remainder of the thoracic spine. No other a reas of canal stenosis or cord compression. Remaining neural foramina appear preserved. No abnormal signal seen in the spinal cord. Paravertebral soft tissues are unremarkable. Impression: Moderate degenerative spondylosis at T2-T3, as detailed above. Mild spondylosis at T1-T2, as detailed above. Reviewed, dictated and finalized at [facility]. Impression: Moderate degenerative spondylosis at T2-T3, as detailed above. Mild spondylosis at T1-T2, as detailed above.
--- OUTSIDE RECORDS SUMMARY | 2025-02-18 13:29 | XMS_ITS | Referral Summary ---
Author Organization 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 Gender Identity Not on file Sexual Orientation [...] 5:15 PM CDT Height 182.9 cm (6' 0.01) 10/24/2022 5:15 PM CD T Body Mass Index 36.62 10/24/2022 5:15 PM CDT Plan of Treatment Not on file Medical Devices Implanted Type Area Customer Service Cashier Device Identifier Shelf Expiration Date Model / Serial / Lot Ethicon Endo Surgery Ligaclip Extra 2.6mm Ligate Open Small Clip Internal Titanium Latex Free Lt100 - Sna - [id number] Implanted:Qty: 1 on 10/24/2022 by Letitia Bunch MD at [facility] Clip Left: Forearm Ethicon Endo Surgery [id number] 07/28/2027 LT100 / NA / [id number] Ethicon Endo Surgery Ligaclip Extra 3.2mm Ligate Open Medium Clip Internal Titanium Latex Free Lt200 - Sna - [id number] Implanted:Qty: 1 on 10/24/2022 by Letitia Bunch MD at [facility] Clip Left: Forearm Ethicon Endo Surgery [id number] 05/28/2027 LT200 / NA / [id number] Ethicon Endo Surgery Ligaclip Extra 2.6mm Ligate Open Small Clip Internal Titanium Latex Free Lt100 - Sna - [id number] Implanted:Qty: 1 on 10/24/2022 by Letitia Bunch MD at [facility] Clip Left: Forearm Ethicon Endo Surgery [id number] 07/28/2027 LT100 / NA / [id number] Ethicon Endo Surgery Ligaclip Extra 3.2mm Ligate Open Medium Clip Internal Titanium Latex Free Lt200 - Sna - [id number] Implanted:Qty: 1 on 10/24/2022 by Letitia Bunch MD at [facility] Clip Left: Forearm Ethicon Endo Surgery [id number] 05/28/2027 LT200 / NA / [id number] Lt Total Knee Replacement Left: Knee Ethicon Endo Surgery Ligaclip Extra 2.6mm Ligate Open Small Clip Internal Titanium Latex Free Lt100 - [id number] Implanted:Qty: 1 on 10/24/2022 by Homer Talamantes MD at [facility] Left: Arm Ethicon Endo Surgery [id number] 04/27/2027 LT100 / / [id number] Axogen Inc Avance 2-3mm 50mm Allograft Multiple Clean Graft Soft Tissue [id number] - Sna - [id number] Implanted:Qty: 1 on 10/24/2022 by Letitia Bunch MD at [facility] Left: Hand Axogen Inc 10/26/2024 [id number] / NA / [id number] Insurance [place] Advance Directives For more information, please contact: [phone] * Full Code (Latest Code Status on File) Date Activated Date Inactivated Comments 10/24/2022 5:24 PM 10/25/2022 2:16 PM Care Teams National Service Officer Relationship Specialty Start Date End Date Jennifer Christensen PA [address] [place] [address] PCP - General Physician Software Solutions Architect 09/14/22 Royer Pierce MD [address]OW[address] L[address] LOWER L[address] [place] [address] Referring Physician Orthopedic Surgery 09/14/22 Royer Figueredo OT [address] [address] Occupational Therapist Occupational Therapy 02/09/23
--- OUTSIDE RECORDS SUMMARY | 2025-02-18 13:29 | XMS_ITS | Encounter Summary ---
Author Organization [facility] Address [address] [place] [address] Phone Care Team Providers Care Mirror Finishing Machine Operator Name Role Phone No, Physician Primary Care Provider Jennifer Christensen Primary Care Provider Royer Pierce MD Unavailable [phone] Royer Figueredo OT Unavailable Encounter Details Date Type Department Care Team (Latest Contact Info) Description 10/21/2017 Orders Only [facility] Scanning, Provider Social History Tobacco Use Types Packs/Day Years Used Date Smoking Tobacco: Never Assessed Sex and Gender Information Value Date Recorded Sex Assigned at Not on file 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 Gender Identity Not on file Sexual Orientation [...] on filedocumented in this encounter Care Teams Mirror Finishing Machine Operator Relationship Specialty Start Date End Date No, Physician PCP - General 12/11/18 09/13/22 Jennifer Christensen PA [address] [place] [address] PCP - General Physician Programming Manager 09/14/22 Royer Pierce MD [address]OW[address] LEVEL LOWER [address] [place] [address] Referring Physician Orthopedic Surgery 09/14/22 Royer Figueredo OT [address] [address] Occupational Therapist Occupational Therapy 02/09/23 documented as of this encounter
--- OUTSIDE RECORDS SUMMARY | 2025-02-18 13:29 | XMS_ITS | Encounter Summary ---
Author Organization [facility] Address [address] [place] [address] Phone Care Team Providers Care Gate Watchman Name Role Phone No, Physician Primary Care Provider [phone] Jennifer Christensen Primary Care Provider Royer Pierce MD Unavailable [phone] Royer Figueredo OT Unavailable [phone] Encounter Details Date Type Department Care Team (Latest Contact Info) Description 03/11/2018 Orders Only [facility] Scanning, Provider Social History Tobacco Use Types Packs/Day Years Used Date Smoking Tobacco: Former Sex and Gender Information Value Date Recorded Sex Assigned at Not on file 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
--- OUTSIDE RECORDS SUMMARY | 2025-02-18 13:29 | XMS_ITS | Clinical Summary ---
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 Gender Identity Not on file Sexual Orientation [...] Risk Assessment 10/26/2023 10/25/2022 Influenza Vaccine (#1) 2025 07/04/2018, 2009 Medical Devices Implanted Type Area Instrument Panel Assembler Device Identifier Shelf Expiration Date Model / Serial / Lot Ethicon Endo Surgery Ligaclip Extra 2.6mm Ligate Open Small Clip Internal Titanium Latex Free Lt100 - Sna - [id number] Implanted:Qty: 1 on 10/24/2022 by Letitia Bunch MD at [facility] Clip Left: Forearm Ethicon Endo Surgery [id number] 07/28/2027 LT100 / NA / 264C14 Ethicon Endo Surgery Ligaclip Extra 3.2mm Ligate Open Medium Clip Internal Titanium Latex Free Lt200 - Sna - [id number] Implanted:Qty: 1 on 10/24/2022 by Leittia Bunch MD at [facility] Clip Left: Forearm Ethicon Endo Surgery [id number] 05/28/2027 LT200 / NA / 200C50 Ethicon Endo Surgery Ligaclip Extra 2.6mm Ligate Open Small Clip Internal Titanium Latex Free Lt100 - Sna - [id number] Implanted:Qty: 1 on 10/24/2022 by Letitia Bunch MD at [facility] Clip Left: Forearm Ethicon Endo Surgery [id number] 07/28/2027 LT100 / NA / 264C14 Ethicon Endo Surgery Ligaclip Extra 3.2mm Ligate Open Medium Clip Internal Titanium Latex Free Lt200 - Sna - [id number] Implanted:Qty: 1 on 10/24/2022 by Letitia Bunch MD at [facility] Clip Left: Forearm Ethicon Endo Surgery [id number] 05/28/2027 LT200 / NA / 200C50 Lt Total Knee Replacement Left: Knee Ethicon Endo Surgery Ligaclip Extra 2.6mm Ligate Open Small Clip Internal Titanium Latex Free Lt100 - [id number] Implanted:Qty: 1 on 10/24/2022 by Homer Talamantes MD at [facility] Left: Arm Ethicon Endo Surgery [id number] 04/27/2027 LT100 / / 123C23 Axogen Inc Avance 2-3mm 50mm Allograft Multiple Clean Graft Soft Tissue [id number] - Sna - [id number] Implanted:Qty: 1 on 10/24/2022 by Letitia Bunch MD at [facility] Left: Hand [employer]ogen Inc 10/26/2024 [id number] / NA / [id number] Insurance [facility] Advance Directives For more information, please contact: [phone] * Full Code (Latest Code Status on File) Date Activated Date Inactivated Comments 10/24/2022 5:24 PM 10/25/2022 2:16 PM Care Teams Stand Grinder Relationship Specialty Start Date End Date Jennifer Christensen PA [address] [place] [address] PCP - General Physician Customer Expert 09/14/22 Royer Pierce MD [address] LOWR LEVEL LOWER LEVEL [address] [place] [address] Referring Physician Orthopedic Surgery 09/14/22 Royer Figueredo OT [address] [facility] [address] [place] [address] Occupational Therapist Occupational Therapy 02/09/23
--- OUTSIDE RECORDS SUMMARY | 2025-02-18 13:29 | XMS_ITS | Clinical Summary ---
Author Organization [facility] [employer] Address [address] [facility] [place] [address] Care Team Providers Care Cycle Consultant Name Role Phone Jennifer Christensen PA-C Primary Care Provider [phone] Moo Triplett DO Unavailable Source Comments [facility] [employer],non-owned Affiliates and Associated Physician Practices is amultiple site organization consisting of ambulatory clinics and hospital sitesin [place], [place], [place] and [place]. This disclosure is being madepursuant to the Care Everywhere program and may not contain all information available regarding this patient. Last updated 18.[facility] [employer] Allergies Active Allergy Reactions Criticality Noted Date Comments Oxycodone Unknown Low 11/08/2022 Pt states has complaints of shortness of breath. States he must go outside and get some air when taking Oxycodone. Would like to avoid taking in the future. Medications * Be aware that medications may not be up to date on this document. Alwaysverify current medications with the patient. multivitamin daily (THERAGRAN) tablet Take 1 (one) tablet by mouth daily with food Instructed patient to stop 1 week before surgery. Active metoprolol succinate XL 24hr (TOPROL XL) 50 MG tablet Take 1 (one) tablet by mouth once daily 4 12/06/19 19 Active Cholecalciferol 50 MCG (1999) Take 1 (one) tablet by mouth every morning Active Menthol, Topical Analgesic, (Biofreeze) 4 % Acti ve VITAMIN E PO Take 1 tablet by mouth every morning Active Multiple Vitamins-Minerals (Super Thera Sierra M) TABS Take 1 (one) tablet by mouth every morning Active hydroCHLOROthiazid e (Hydrodiuril) 25 MG tablet Take 1 (one) tablet by mouth once daily 02/13/20 24 Active docusate sodium (Colace) 100 MG capsule TAKE ONE CAPSULE BY MOUTH 2 TIMES A DAY 60 capsule 12/07/19 24 Active aspirin (Aspirin) 81 MG chew tablet CHEW AND SWALLOW 1 TABLET BY MOUTH TWO TIMES A DAY FOR 42 DAYS FOR BLOOD CLOT PREVENTION 84 tablet 12/07/19 24 Active Additional Information Patient not taking.Reported on 10/13/2024 acetaminophen (Tylenol) 325 MG tablet Take 2 (two) tablets by mouth every 6 hours for 60 doses Maximum allowable Acetaminophen amount = 4 Grams (4000 mg) / 24 hours. 120 tablet 10/07/19 25 Active aspirin (Aspirin) 81 MG chew tablet Take 1 (one) tablet by mouth 2 times daily for 35 days 70 tablet 10/07/19 25 Active Additional Information Patient not taking.Reported on 10/13/2024 celecoxib (CeleBREX) 200 MG capsuleIndications :Primary osteoarthritis of right knee Take 1 capsule by mouth once daily 30 capsule 5 11/17/19 25 Active gabapentin (Neurontin) 300 MG capsule Take 1 (one) capsule by mouth 3 times daily 90 capsule 2 11/18/19 25 Active traMADol (Ultram) 50 MG tablet Take 1 (one) tablet by mouth every 6 hours as needed for Pain 20 tablet 11/18/19 25 Active Active Problems Problem Noted Date Diagnosed Date Hand pain, left 11/16/2024 Essential (primary) hypertension 10/06/2024 Obstructive sleep apnea 10/06/2024 Acute pain of left foot 10/06/2024 Open dislocation of phalanx of foot, left, initial encounter 10/05/2024 History of total left knee replacement 9 Primary osteoarthritis of right knee 12/15/2018 Encounters Date Type Department Care Team Description 02/04/2025 Orders Only [facility] - Orthopedics [address] [place] [phone] Rafaela Hall MD Acute pain of left foot 12/22/2024 9:00 AM CDT Office Visit [facility] - Orthopedics [address] [place] [phone] Rafaela Hall MD Crushing injury of left foot, subsequent encounter (Primary Dx); Open displaced fracture of proximal phalanx of left great toe with routine healing, subsequent encounter; Open dislocation of phalanx of foot, left, subsequent encounter 12/22/2024 8:23 AM CDT - 12/22/2024 11:59 PM CDT Hospital Encounter [facility] CSM [address]L [address] [facility] [place] [address] Rafaela Hall MD Discharge Disposition: Home or Self Care 12/22/2024 Travel 12/11/2024 Orders Only [facility] - Orthopedics [address] 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 Gender Identity Not on file Sexual Orientation Not on file Last Filed Vital Signs Vital Sign Reading Time Taken Comments Blood Pressure 159/110 10/05/2024 4:42 PM CDT Pulse 88 10/05/2024 6:04 PM CDT Temperature 36.6 C (97.8 F) 10/05/2024 4:42 PM CDT Respiratory Rate 17 10/05/2024 6:04 PM CDT Oxygen Saturation 96% 10/05/2024 6:04 PM CDT Inhaled Oxygen Concentration - - Weight 122.5 kg (270 lb) 10/05/2024 4:42 PM CDT Height 182.9 cm (6') 10/05/2024 4:42 PM CDT Body Mass Index 36.62 10/05/2024 4:42 PM CDT Plan of Treatment Upcoming Encounters Date Type Department Care Team (Late st Contact Info) Description 04/13/2025 9:00 AM CDT Office Visit [facility] - Orthopedics [address] [place] [address], [place] [phone] [place] [address] [place] [address] [address] DIV OF [place] [phone] Health Maintenance Due Date Last Done Comments COLOGUARD (AGES 45-75) - COLON CA SCREENING 1957 COLON MONITORING 1957 COLONOSCOPY - COLON CA SCREENING 1957 CT COLONOGRAPHY - COLON CA SCREENING 1957 Colorectal Cancer Screening 1957 FIT - COLON CA SCREENING 1957 FLEX SIG - COLON CA SCREENING 1957 HEPATITIS C SCREENING 07/19/1975 DTAP/TDAP/TD VACCINES (1 - Tdap) 1976 PNEUMOCOCCAL VACCINE 50+ (1 of 1 - PCV) 2007 ZOSTER VACCINE (1 of 2) 2007 DEPRESSION SCREENING 07/29/2024 COVID-19 VACCINE ( season) 2024 05/11/2024, 05/17/2023, 04/21/2022, Additional history exists INFLUENZA VACCINE (#1) 2025 4, 03/27/2023, 04/08/2022, Additional history exists SCREENING FOR DIABETES 10/06/2027 5, 10/03/2023, 09/20/2023, Additional history exists LIPID TESTING 09/20/2028 09/20/2023 Respiratory Syncytial Virus (RSV) Vaccine Pt: or [...] complete this topic MENINGOCOCCAL (Group B) VACCINE SHARED DECISION-MAKING Aged Out No longer eligible based on patient's age to complete this topic MENINGOCOCCAL GROUPS A/C/Y/W VACCINE Aged Out No longer eligible based on patient's age to complete this topic Medical Devices Implanted Type Area Pile Header Device Identifier Shelf Expiration Date Model / Serial / Lot Cmnt Bone Plc R 40gm Grn Implanted:Qty: 2 on 12/06/2023 by Lew Leos MD at [facility] Right: Knee [employer] 03/28/2026 [id number] / / [id number] Cmpnt Ptlr Std 31mm 3 Pg Kn Ser A Implanted:Qty: 1 on 12/06/2023 by Lew Loes MD at [facility] Right: Knee [employer] 07/02/2028 [id number] / / [id number] Cmpnt Fem Kn Rt Cr Cmnt Prm Vngrd Intlk Implanted:Qty: 1 on 12/06/2023 by Lew Leos MD at [facility] Right: Knee [employer] 07/11/2033 [id number] / / [id number] Tray Tib 83mm Kn Cocr I Beam Implanted:Qty: 1 on 12/06/2023 by Lew Leos MD at [facility] Right: Knee [employer] 01/12/2032 [id number] / / [id number] Tibial Insert 83mm X 14mm Implanted:Qty: 1 on 12/06/2023 by Lew Leos MD at [facility] Right: Knee [employer] 08/03/2027 [id number] / / [id number] Procedures Procedure Name Priority Date/Time Associated Diagnosis Comments XR FOOT LEFT 3VW OR MORE Routine 12/22/2024 8:32 AM CDT Crushing injury of left foot, subsequent encounter COMPREHENSIVE METABOLIC PANEL STAT 10/05/2024 5:13 PM CDT from Last 3 Months or Most Recently Relevant to Health Maintenance Results * XR Foot Left 3Vw or More (12/22/2024 8:32 AM CDT) Anatomical Region Laterality Modality Ankle / Foot Radiographic Millicent ging 12/22/2024 11:0 7 AM CDT Impressions 12/22/2024 11:09 AM CDT IMPRESSION: Further healing of the comminuted displaced fracture of the distal aspect of the first proximal phalanx. The fracture fragments and fracture margins are in relatively unchanged position.. > Interpreting Provider: Cornelius Smith MD on 12/22/2024 11:09 AM Narrative 12/22/2024 11:09 AM CDT PROCEDURE: XR FOOT LEFT 3VW OR MORE COMPARISON: No relevant available comparison. CLINICAL INFORMATION (none relevant/not provided if blank): Indication: S97.82XD: Crushing injury of left foot, subsequent encounter Additional History: FINDINGS: AP, internal rotation and lateral views of the left foot were obtained and compared to the prior study from 11/17/2024. There has been further healing of the displaced fracture of the distal aspect of the first proximal phalanx. Fracture margins are unchanged in position. No other fractures are identified. Arthritic changes including bunion formation and cyst formation of the first metatarsal head noted. Procedure Note Cornelius Smith MD - 12/22/2024 PROCEDURE: XR FOOT LEFT 3VW OR MORE COMPARISON: No relevant available comparison. CLINICAL INFORMATION (none relevant/not provided if blank): Indication: S97.82XD: Crushing injury of left foot, subsequent encounter Additional History: FINDINGS: AP, internal rotation and lateral views of the left foot were obtainedand compared to the prior study from 11/17/2024. There has been furtherhealing of the displaced fracture of the distal aspect of the first proximal phalanx. Fracture margins are unchanged in position. No other fractures are identified. Arthritic changes including bunion formation and cyst formation of the first metatarsal head noted. IMPRESSION: Further healing of the comminuted displaced fracture of the distal aspect of the first proximal phalanx. The fracture fragments and fracture margins are in relatively unchanged position.. > Interpreting Provider: Cornelius Smith MD on 12/22/2024 11:09 AM Rafaela Hall MD DIAGNOSTIC IMAGING ORDERABLES Fi nal Result * (ABNORMAL) COMPREHENSIVE METABOLIC PANEL (10/05/2024 5:13 PM CDT) BUN 19 7 - 26 mg/dL 10/05/2024 5:55 PM [facility] Creatinine 0.96 0.71 - 1.16 mg/dL 10/05/2024 5:55 PM [facility] Sodium 138 136 - 145 mmol/L 10/05/2024 5:55 PM [facility] Potassium 4.0 3.5 - 4.5 mmol/L 10/05/2024 5:55 PM [facility] Chloride 105 98 - 107 mmol/L 10/05/2024 5:55 PM [facility] CO2 24 22 - 29 mmol/L 10/05/2024 5:55 PM [facility] Glucose 96 70 - 99 mg/dL 10/05/2024 5:55 PM [facility] Calcium 9.4 8.4 - 10.2 mg/dL 10/05/2024 5:55 PM [facility] Protein Total 8.4(H) 6.0 - 8.3 g/dL 10/05/2024 5:55 PM [facility] Albumin 4.1 3.4 - 5.0 g/dL 10/05/2024 5:55 PM [facility] Bilirubin Total 0.7 0.2 - 1.2 mg/dL 10/05/2024 5:55 PM [facility] Alkaline Phosphatase 76 40 - 150 U/L 10/05/2024 5:55 PM [facility] ALT 20 5 - 55 U/L 10/05/2024 5:55 PM [facility] AST 23 5 - 34 U/L 10/05/2024 5:55 PM [facility] Anion Gap 9 6 - 16 10/05/2024 5:55 PM [facility] BUN/Creatinine Ratio 20 7 - 23 10/05/2024 5:55 PM [facility] Osmolality Calculated 288 275 - 295 mOsm/kg 10/05/2024 5:55 PM [facility] Albumin/Globulin Ratio 1.0(L) 1.1 - 2.3 10/05/2024 5:55 PM [facility] eGFR by CKD-EPI 87(L) >=90 mL/min/1.7 3 m2 10/05/2024 5:55 PM [facility] Blood BLOOD SPECIMEN / Unknown Venipuncture / Unknown 10/05/2024 5:13 PM CDT 10/05/2024 5:20 PM T Nikhil Banegas MD LAB - CHEMISTRY ORDERABLES Final Result [facility] [address] [place] [address], [facility] [phone] from Last 3 Months or Most Recently Relevant to Health Maintenance Insurance [facility] Member Subscriber Plan / Payer (Ef fective 2024-Present) Name:Amos Liu Relation to Subscriber:Self Name:Minoolynnalicia Amos Mcclendon Payer ID:[id number] (NAIC) Type:PPO Address: [place] [phone] Advance Directives * Full Code (Latest Code Status on File) Date Activated Date Inactivated Comments 10/05/2024 11:25 PM 10/06/2024 3:32 PM * Full Code Date Activated Date Inactivated Comments 12/06/2023 12:25 PM 12/07/2023 2:35 PM * Full Code Date Activated Date Inactivated Comments 04/19/2010 12:07 PM 04/23/2010 1:33 AM Care Teams Cycle Consultant Relationship Specialty Start Date End Date Jennifer Christensen PA-C [address] [place] [address] PCP - General Physician Securities Lending Trader 10/03/23 Moo Triplett DO [address] [facility] [address] [place] [address] Internal Medicine 10/03/23
== END 2025-02-18 13:23 | disposition home or self-care (01) ==
PROVIDERS: PCP Physician Assistant Medical; Visit Provider Physician Assistant Medical
DX: R93.7 Abnormal findings on diagnostic imaging of other parts of musculoskeletal system (principal); M47.814 Spondylosis without myelopathy or radiculopathy, thoracic region; M54.50 Low back pain, unspecified; M54.2 Cervicalgia
CPT/HCPCS: 72141; 72146; 72148

== ENCOUNTER 2025-03-04 14:45 | Outpatient (RCR) | payer OTHER, SELFPAY ==
--- NOTE | 2025-02-03 19:28 | OPREHPOC ---
Outpatient Therapy Plan of Care This is a Multidisciplinary Plan of Care that may contain components documented by all disciplines (PT, OT, and ST.) PT Problem 1 PT Problem #1 Knowledge Deficit PT Goal 1 Goal / Goal Update Pt will be independent in HEP Pt will verbalize understanding of diagnosis and prognosis Target Visit 5 PT Problem 2 PT Problem #2 Pain PT Goal 1 Goal / Goal Update Pt will report greatest pain level at 3/10 or less to improve ADLs and activities Target Visit 10 PT Problem 3 PT Problem #3 Impaired Range of Motion PT Goal 1 Goal / Goal Update Pt will demonstrate at least 50% overall ROM in all sections of spine Target Visit 10
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
--- NOTE | 2025-03-04 16:50 | PTOPDC ---
Assessment and note entered by Zayda Rob, PT Evaluation Information Assessment Status Discharge Diagnosis Cervicalgia, Pain in Thoracic spine, low back pain unspec ICD-10 Condition Codes (PT) Cervicalgia M54.2,Pain in Thoracic Spine M54.6, Pain in low back M54.50,Difficulty Walking R26.2, Abnormalities of gait and mobility R26.9 Onset 09/2024 Subjective Information Pt reports was working on his mother's freezer and had to sit down to work on it. Was bending over, picking up items and putting in 5 gallon buckets. Pt felt better with rest but had to sit for a good time. Pt reports back feeling the same as when starting therapy. Reports someone called about his MRI. Reports when the person called to talk about his MRI, wishes he would have asked them to go over it again, but figured he'd be going over it with someone at sometime. Reports he does his exercises. States he isn't crazy about them but knows he needs to do them so he does. Reported Pain Level Pain Score 7,3,7: Self Report Assessment PT Clinical Summary Pt has attended therapy consistently for lumbar, thoracic, and cervical spine pain. He has participated fully, reports has been doing his exercises, but does not feel he is improving. Objective measurements show minimal to negligible improvement from eval to current session. Pt has been educated on this, continued exercises to maintain current function, and referral back to PCP for further options. Pt is being discharged for max benefit being met. Plan of Care PT Services Indicated No
== END 2025-03-08 08:35 | disposition home or self-care (01) ==
LOC: ANHHIPT 14:45
PROVIDERS: PCP Physician Assistant Medical; Visit Provider Physician Assistant Medical
DX: M54.2 Cervicalgia (principal); M54.50 Low back pain, unspecified; M54.6 Pain in thoracic spine
CPT/HCPCS: 97014; 97110; 97163; 97530; 97750; G0283

== ENCOUNTER 2025-05-04 08:00 | Outpatient (RCR) | payer OTHER, SELFPAY ==
--- NOTE | 2025-02-09 09:28 | OPREHPOC ---
Outpatient Therapy Plan of Care This is a Multidisciplinary Plan of Care that may contain components documented by all disciplines (PT, OT, and ST.) ST Problem 1 ST Problem #[address] Goal 1 Goal / Goal Update Patient will participate in education to improve use of compensatory strategies for improved cognition. Target Visit [address] Problem #[address] Goal 1 Goal / Goal Update 1. Patient will complete word relationship tasks ( semantic feature analysis map, analogies, compare/ contrast, word deductions) with 80% accuracy when provided minimal verbal or visual cues. 2. Patient will complete functional math problems (e.g. finance, time management) with 80% accuracy with use of compensatory problem solving strategies. 3. Patient will complete functional reading tasks with 80% accuracy independently. 4. Patient will identify safety hazards and provide appropriate recommendation for increased safety with 90% accuracy independently. Target Visit 10
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
[2025-02-16 07:59] VITALS: O2SAT 50
[2025-03-02 08:00] VITALS: O2SAT 80
[2025-03-11 11:25] VITALS: O2SAT 100
[2025-03-16 07:58] VITALS: O2SAT 50
[2025-03-23 08:00] VITALS: O2SAT 50
[2025-03-30 08:00] VITALS: O2SAT 85
--- NOTE | 2025-04-27 09:03 | STOPPROG ---
Assessment and note entered by Wendy Alcantar, AUDIO VISUAL MANAGER Evaluation Information Assessment Status Progress Assessment ST Clinical Summary Patient's initial evaluation on 02/09/25 demonstrated the following results: Patient attended to explanation of speech therapy scope of practice and independently identified difficulty with verbal expression. He commented that he would like for his word finding to improve in conversation. He completed the SLUMS with a score of 21/30, indicating a mild neurocognitive disorder. Patient demonstrated strength in short term memory and weaknesses in attention, executive functioning and problem solving. Additionally, it was observed that patient had difficulty with working memory due to directions needing to be frequently repeated. Patient participated in further informal evaluation to identify appropriate goals to set in problem solving. He was able to describe ways to solve both simple and complex problems with 100% accuracy. Additionally , he was able to participate in sequencing tasks with 100% accuracy. Patient had more difficult time with verbal problem solving tasks (e.g. describing ways items were alike/different, identifying item that does not belong to the group ). He also demonstrated mild-moderate deficits in functional math/time management problems and functional reading tasks. During this reporting period, patient has attended 10 out of 10 possible treatment sessions. He has actively participated in education to use problem solving and reading comprehension strategies. Patient has made progress as evidenced by meeting his goal set in identifying safety hazards as well as providing appropriate recommendations for improved safety. Additionally, he has progressed in completing word relationship tasks. He met his goal in completing word deductions and analogies; however, he has room to improve in completing compare/contrast and descriptive tasks using semantic feature analysis. Patient has also progressed in completing functional math and functional reading tasks, but has not yet reached his goal of 80% accuracy. Patient participated in re-evaluation using the SLUMS and MoCA cognitive testing. His re-evaluation of the SLUMS increased to a 26/30 (previously 21/30); however, this still places him in the mild neurocognitive disorder limits. Additionally, he completed the MoCA and revealed weaknesses in short term memory and word- finding. Patient is motivated to continue his progress targeting cognitive-linguistic deficits. Recommend patient to continue participating in skilled ST services 1-2x/week for 10 sessions to target updated goals in order to optimize cognition for increased safety outcomes upon return to work. Plan of Care Interventions Treatment for Cognitive Function ST Services Indicated Yes Treatment Frequency and 1-2x/week for 10 sessions Duration These treatments will address the objective and functional deficits as defined above. The patient will be advanced safely and appropriately in order for the patient to progress towards his/her prior level of function. Additional exercises will be introduced and as well as a comprehensive home exercise program upon discharge, if needed, ?to ensure carryover of functional gains achieved in the clinic. This treatment plan has been reviewed and agreement upon by the patient.
--- NOTE | 2025-04-27 09:03 | OPREHPOC ---
Outpatient Therapy Plan of Care This is a Multidisciplinary Plan of Care that may contain components documented by all disciplines (PT, OT, and ST.) ST Problem 1 ST Problem #[address] Goal 1 Goal / Goal Update Patient will participate in education to improve use of compensatory strategies for improved cognition. 04/27/25: Patient participates in education/skilled intervention weekly to improve problem solving and reading comprehension strategies. Ongoing, evolving education remains appropriate. Target Visit [address] Problem 2 ST Problem #[address] Goal 1 Goal / Goal Update 1. Patient will complete word relationship tasks ( semantic feature analysis map, analogies, compare/ contrast, word deductions) with 80% accuracy when provided minimal verbal or visual cues. 04/27/25: Goal partially met. Analogies and word deductions met; compare/contrast 50% accuracy independently and 80% with mod assist. 2. Patient will complete functional math problems (e.g. finance, time management) with 80% accuracy with use of compensatory problem solving strategies. 04/27/25: Continue goal. 45% accuracy independently , 88% accuracy with partial/mod assist. 3. Patient will complete functional reading tasks with 80% accuracy independently. 04/27/25: Continue goal. 70% accuracy independently , 80% accuracy with verbal cues 4. Patient will identify safety hazards and provide appropriate recommendation for increased safety with 90% accuracy independently. 04/27/25: Goal met. Target Visit [address] Goal 2 Goal / Goal Update New goals: 1. Patient will complete word finding tasks (e.g. divergent/convergent naming, adding item to list, etc) with 80% accuracy independently. 2. Patient will complete short term memory task with use of compensatory memory strategies with 80 % accuracy independently. Target Visit 20
--- NOTE | 2025-05-11 09:50 | OTOPEVAL1 ---
Assessment and note entered by Vidal Henning, SARA/Aleta, CHT Evaluation Information Assessment Status Evaluation Diagnosis G56.22 Lesion of ulnar nerve, left UE ICD-10 Condition Codes (OT) Pain in left hand M79.642,Paresthesia of skin R20. 2 Subjective Information Patient presents with orders for left ulnar neuropathy. He shows scars evidence of cubital tunnel release with nerve transposition and Guyon' s canal release, but he is unsure how long ago his surgery was. He reports he continues to have problems with the ulnar 2 digits, reporting continued numbness and pain. He describes the hand pain as mild to moderate and it's dull. He reports the pain is constant. He tends to grab these fingers for relief. He is right handed. He reports difficulties using his left hand to tie a shoe and open jars. Per EMR, he was referred to an UE specialist at [place] in 2022 for the surgery. Reported Pain Level Pain Score Mild Pain: [place] Additional Pain Score Comments Pt unable to use numeric pain scale. Assessment OT Clinical Summary Patient referred to OT with dx of lesion of ulnar nerve in the left UE. He presents with evidence of prior left cubital tunnel release and Guyon's canal release. He presents with severely impaired intrinsic hand strength, positive Froment's sign, and reduced 2-point discrimination in the ulnar 2 digits. Skilled OT indicated to increase left hand function via therapeutic exercise, HEP instruction and progression, use of modalities for improved flexibility, nerve glides, and adaptive ADL technique education PRN. Plan of Care Interventions Therapeutic Exercise,Manual Therapy,Neuro Re- education,Therapeutic Activities,Hot Pack/Cold Pack,Ultrasound,Paraffin OT Services Indicated Yes Treatment Frequency and 1-2x/week for 8 visits Duration These treatments will address the objective and functional deficits as defined above. The patient will be advanced safely and appropriately in order for the patient to progress towards his/her prior level of function. Additional exercises will be introduced and as well as a comprehensive home exercise program upon discharge, if needed, ?to ensure carryover of functional gains achieved in the clinic. This treatment plan has been reviewed and agreement upon by the patient.
--- NOTE | 2025-05-11 09:50 | OPREHPOC ---
Outpatient Therapy Plan of Care This is a Multidisciplinary Plan of Care that may contain components documented by all disciplines (PT, OT, and ST.) OT Problem 1 OT Problem #1 Knowledge Deficit OT Goal 1 Goal / Goal Update 1. Patient to be independent with instructed materials. Target Visit 8 OT Problem 2 OT Problem #2 Pain OT Goal 1 Goal / Goal Update 1. Patient to report pain decreasing from constant to intermittent in the left hand. Target Visit 8 OT Problem 3 OT Problem #3 Impaired Strength OT Goal 1 Goal / Goal Update Patient to increase functional strength of the left UE/hand for improved ADL performance as measured by: 1. increasing left devulcanizer tender strength from 45 to 50 lbs . 2. increasing left lateral pinch strength from 8 to 10 lbs. 3. increasing left palmar pinching strength from 8 to 10 lbs. 4. increasing left finger adduction and abduction strength to 3/[address] MMT Target [address] Problem #[address] Goal 1 Goal / Goal Update Patient will participate in education to improve use of compensatory strategies for improved cognition. 04/27/25: Patient participates in education/skilled intervention weekly to improve problem solving and reading comprehension strategies. Ongoing, evolving education remains appropriate. Target Visit [address] Problem 2 ST Problem #[address] Goal 1 Goal / Goal Update 1. Patient will complete word relationship tasks ( semantic feature analysis map, analogies, compare/ contrast, word deductions) with 80% accuracy when provided minimal verbal or visual cues. 04/27/25: Goal partially met. Analogies and word deductions met; compare/contrast 50% accuracy independently and 80% with mod assist. 2. Patient will complete functional math problems (e.g. finance, time management) with 80% accuracy with use of compensatory problem solving strategies. 04/27/25: Continue goal. 45% accuracy independently , 88% accuracy with partial/mod assist. 3. Patient will complete functional reading tasks with 80% accuracy independently. 04/27/25: Continue goal. 70% accuracy independently , 80% accuracy with verbal cues 4. Patient will identify safety hazards and provide appropriate recommendation for increased safety with 90% accuracy independently. 04/27/25: Goal met. Target Visit [address] Goal 2 Goal / Goal Update New goals: 1. Patient will complete word finding tasks (e.g. divergent/convergent naming, adding item to list, etc) with 80% accuracy independently. 2. Patient will complete short term memory task with use of compensatory memory strategies with 80 % accuracy independently. Target Visit 20
== END 2025-05-10 23:59 | disposition home or self-care (01) ==
LOC: ANHHIST 08:00
PROVIDERS: PCP Physician Assistant Medical; Visit Provider Physician Assistant Medical
DX: R47.89 Other speech disturbances (principal)
CPT/HCPCS: 92507; 96125; 97110; 97166

== ENCOUNTER 2025-05-25 09:43 | Day surgery (SDC) | payer OTHER, SELFPAY ==
[2025-05-21 13:35] VITALS: BMI 37.6
--- NOTE | ~2025-05-25 | XR_ITS ---
EXAMINATION: XR fluoroscopy no charge INDICATION: OVIDIO G/P KISHOR JEREMÍAS L3,L4,L5 MEDIAL BRANCH/DORSAL RAMI NERVE BLK . COMPARISON: Radiography of lumbar spine from December. TECHNIQUE: 11 fluoroscopic images of the lumbar spine were obtained during nerve block. Fluoroscopy exposure time was 78.6 seconds. Cumulative dose is 56.72 mGy. FINDINGS/IMPRESSION: Fluoroscopic documentation of lumbar nerve block. Please refer to the operative note for complete procedural details Reviewed, dictated and finalized at location A.
[2025-05-25 10:50] VITALS: BP 160/94; PULSE 73; RESP 18; TEMP 36.8; O2SAT 99
--- NOTE | 2025-05-25 11:13 | WPDHPUPDATE1 ---
History and Physical Update Update Date/Time: 05/25/25 11:13 History and Physical has been reviewed, including an updated exam of the patient. There are NO changes in the patient's condition. Risks, benefits, and alternatives have been discussed and questions answered. Patient agrees to proceed with procedure.
--- NOTE | 2025-05-25 11:14 | P.OP_ITS ---
Procedure Note - Detailed Date of Procedure 05/25/25 Pre-op Diagnosis Lumbar Spondylosis w/o Myelopathy or Radiculopathy Post-op Diagnosis Same Procedure Performed Diagnostic bilateral Lumbar Medial Branch/Dorsal Ramus Blocks at L3, L4, L5 Treating the bilateral L4-5, L5-S1 Facet Joints Under Fluoroscopic Guidance and with Contrast Control. (4 levels blocked). Surgeon Lew Grace MD Screw Eye Assembler None. Anesthesia Local Description of Procedure INFORMED CONSENT: Risks, benefits and alternatives to the procedure were discussed in detail with the patient who expressed explicit understanding and consent to proceed. Patient was informed verbally and in written form regarding the risks associated with the procedure including the low risk of serious infection, bleeding/bruising, allergic reaction, nerve or organ injury, paralysis, procedural site pain or discomfort, worsening pain and/or mobility, failure to treat and/or disfigurement. The patient expressed explicit understanding and consent to proceed. All materials required for the procedure were available prior to procedure start. Site and side were marked prior to procedure and confirmed in the presence of the patient. PROCEDURE IN DETAIL: The patient was brought to the procedural suite and placed in the prone position. Patient was made comfortable with use of pillows under the head/chest, hips and ankles. Skin overlying the injection site on the affected side(s) was prepared broadly with ChloraPrep applicator and draped in a sterile manner. Aseptic technique was used throughout. The endplates of the vertebral bodies at the site(s) of interest were aligned in the AP view. I psilateral oblique angulation was utilized to optimize visualization of the intersection between the superior articulating process and transverse process at each target site. Local anesthesia was established by infiltration with approximately 5 mL of 1% lidocaine via a 1-1/2 inch 27-gauge needle. A 25-gauge 5.0 inch Quincke spinal needle was advanced until the needle tip contacted periosteum at the target site, right L3. Lateral view was utilized to confirm the appropriate placement of the needle tip just anterior to the facet line and superior to the pedicle. In the Lateral view, 0.25 mL of Omnipaque 300 contrast medium was injected after negative aspiration for CSF, blood or other bodily fluid, showing appropriate extra-articular spread of contrast without evidence of intravascular, foraminal or intrathecal placement. A 0.5 mL solution of 0.5% PF bupivacaine was injected after negative repeat aspiration. Appropriate spread of the injectate was confirmed with washout of previously injected contrast. No parasthesias were elicited. Needle was removed completely intact without difficulty. The same exact procedure was repeated for all remaining levels on the ipsilateral side, right L4, L5 medial branches/dorsal ramus, modified as necessary to accommodate for the new target location with identical findings and results and no evidence of complication. The same exact procedure was repeated for all remaining levels on the contralateral side, left L3, L4, L5 medial branches/dorsal ramus, modified as necessary to accommodate for the new target location with identical findings and results and no evidence of complication. Images were saved and documented in the patient chart. Patient's skin was cleaned and sterile bandage applied. The patient tolerated the procedure well. The patient was transported to the recovery area in stable condition where they were observed for an appropriate amount of time prior to discharge, without evidence of complication. Patient was instructed on the appropriate completion of a pain diary over the next 12-24 hours. The patient was instructed to avoid excessive activity for the next 48 hours, including climbing and frequent use of stairs. Showers only for 48 hours. They were instructed not to drive or operate heavy machinery for 24 hours. They are to monitor for severe headaches, fevers, chills, night sweats, erythema/swelling at the site or any other signs of infection, bleeding/bruising, bowel or bladder changes as well as new pain, weakness or numbness in the upper or lower extremity. Should they notice these changes, they are instructed to call our office immediately or report directly to the nearest Emergency Department if no answer or if after posted office hours. COMPLICATIONS: None COMMENTS: None CONTRAST WASTED: 28.5mL Omnipaque 300. Complications No immediate complications Condition Stable Disposition Same day [facility] Billing Surgery - Charge Forward: Surgery Billing
[2025-05-25 11:37] VITALS: BP 167/97; PULSE 76; RESP 16; O2SAT 96
[2025-05-25 11:42] VITALS: BP 164/98; PULSE 74; RESP 10; O2SAT 97
[2025-05-25] MEDS: BUPivacaine HCL 0.5% 10 ML AMP (11:42)
[2025-05-25 11:47] VITALS: BP 163/98; PULSE 74; RESP 12; O2SAT 96
[2025-05-25 11:53] VITALS: BP 143/99; PULSE 78; RESP 20; O2SAT 96
--- OUTSIDE RECORDS SUMMARY | 2025-05-25 11:53 | XMS_ITS | Encounter Summary ---
Author Organization [facility] Address [address] [place] [address] Phone Care Team Providers Care Region Manager Name Role Phone No, Physician Primary Care Provider [phone] Jennifer Christensen Primary Care Provider Royer Pierce MD Unavailable [phone] Royer Figueredo OT Unavailable Encounter Details Date Type Department Care Team (Latest Contact Info) Description 03/11/2018 Orders Only [facility] Scanning, Provider Social History Tobacco Use Types Packs/Day Years Used Date Smoking Tobacco: Former Sex and Gender Information Value Date Recorded Sex Assigned at Not on file 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
--- OUTSIDE RECORDS SUMMARY | 2025-05-25 11:53 | XMS_ITS | Encounter Summary ---
Author Organization [facility] Address [address] [place] [address] Phone Care Team Providers Care Rn Shift Mgr Name Role Phone No, Physician Primary Care Provider Jennifer Christensen Primary Care Provider Royer Pierce MD Unavailable [phone] Royer Figueredo OT Unavailable Encounter Details Date Type Department Care Team (Latest Contact Info) Description 10/21/2017 Orders Only [facility] Scanning, Provider Social History Tobacco Use Types Packs/Day Years Used Date Smoking Tobacco: Never Assessed Sex and Gender Information Value Date Recorded Sex Assigned at Not on file 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 Gender Identity Not on file Sexual Orientation [...] on filedocumented in this encounter Care Teams Rn Shift Mgr Relationship Specialty Start Date End Date No, Physician PCP - General 12/11/18 09/13/22 Jennifer Christensen PA [address] [place] [address] PCP - General Physician Solar Applications Development Engineer 09/14/22 Royer Pierce MD [address] LOWR LEVEL LOWER LEVEL [address]NA [address] [place] [address] Referring Physician Orthopedic Surgery 09/14/22 Royer Figueredo OT [address] [address] Occupational Therapist Occupational Therapy 02/09/23 documented as of this encounter
--- OUTSIDE RECORDS SUMMARY | 2025-05-25 11:53 | XMS_ITS | Clinical Summary ---
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 Gender Identity Not on file Sexual [...] 07/04/2018, 2009 Medical Devices Implanted Type Area Bottom Loader Device Identifier Shelf Expiration Date Model / Serial / Lot Ethicon Endo Surgery Ligaclip Extra 2.6mm Ligate Open Small Clip Internal Titanium Latex Free Lt100 - Sna - [id number] Implanted:Qty: 1 on 10/24/2022 by Letitia Bunch MD at [facility] Clip Left: Forearm Ethicon Endo Surgery [id number] 07/28/2027 LT100 / NA / [id number] Ethicon Endo Surgery Ligaclip Extra 3.2mm Ligate Open Medium Clip Internal Titanium Latex Free Lt200 - Sna - [id number] Implanted:Qty: 1 on 10/24/2022 by Letitia Bunch MD at [facility] Clip Left: Forearm Ethicon Endo Surgery [id number] 05/28/2027 LT200 / NA / [id number] Ethicon Endo Surgery Ligaclip Extra 2.6mm Ligate Open Small Clip Internal Titanium Latex Free Lt100 - Sna - [id number] Implanted:Qty: 1 on 10/24/2022 by Letitia Bunch MD at [facility] Clip Left: Forearm Ethicon Endo Surgery [id number] 07/28/2027 LT100 / NA / [id number] Ethicon Endo Surgery Ligaclip Extra 3.2mm Ligate Open Medium Clip Internal Titanium Latex Free Lt200 - Sna - [id number] Implanted:Qty: 1 on 10/24/2022 by Letitia Bunch MD at [facility] Clip Left: Forearm Ethicon Endo Surgery [id number] 05/28/2027 LT200 / NA / [id number] Lt Total Knee Replacement Left: Knee Ethicon Endo Surgery Ligaclip Extra 2.6mm Ligate Open Small Clip Internal Titanium Latex Free Lt100 - [id number] Implanted:Qty: 1 on 10/24/2022 by Homer Talamantes MD at [facility] Medicine Left: Arm Ethicon Endo Surgery [id number] 04/27/2027 LT100 / / [id number] Axogen Inc Avance 2-3mm 50mm Allograft Multiple Clean Graft Soft Tissue [id number] - Sna - [id number] Implanted:Qty: 1 on 10/24/2022 by Letitia Bunch MD at [facility] Left: Hand Axogen Inc 10/26/2024 [id number] / NA / [id number] Insurance [facility] Advance Directives For more information, please contact: [phone] * Full Code (Latest Code Status on File) Date Activated Date Inactivated Comments 10/24/2022 5:24 PM 10/25/2022 2:16 PM Care Teams Supervisor Mechanic Boilermaking Relationship Specialty Start Date End Date Jennifer Christensen PA [address] [place] [address] PCP - General Physician Bilingual Manager 09/14/22 Royer Pierce MD [address] LOWR LEVEL LOWER LEVEL [address] [place] [address] Referring Physician Orthopedic Surgery 09/14/22 Royer Figueredo OT [address] [facility] [address] [place] [address] Occupational Therapist Occupational Therapy 02/09/23
--- OUTSIDE RECORDS SUMMARY | 2025-05-25 11:54 | XMS_ITS | Encounter Summary ---
Author Organization [facility] Address [address] [place] [address] Care Team Providers Care Slip Cover Sewer Name Role Phone Jennifer Christensen Primary Care Provider [phone] Encounter Details Date Type Department Care Team (Late st Contact Info) Description 07/16/2019 Therapy Plan [facility] [address] [place] [address] John Jimenez MD [address] [facility] [place] [address] [place] [address] Social History Tobacco Use Types Packs/Day Years [...] Sex Assigned at Male 08/20/2019 6:33 PM SALES CORRESPONDENT Legal Sex Male 7:08 PM CDT Gender Identity Male 08/20/2019 6:33 PM SALES CORRESPONDENT Sexual Orientation Straight 08/20/2019 6: 33 PM SALES CORRESPONDENT documented as of this encounter Functional Status * RETIRED Are you deaf or do you have serious difficulty hearing Answer Date of Assessment Author Status No 07/11/2019 9:04 AM SALES CORRESPONDENT Activ e documented as of this encounter Plan of Treatment Not on file documented as of this encounter Visit Diagnoses Not on filedocumented in this encounter Care Teams Slip Cover Sewer Relationship Specialty Start Date End Date Jennifer Christensen PA PCP - General PHYSICIAN HEPATOLOGIST 01/11/19 documented as of this encounter
--- OUTSIDE RECORDS SUMMARY | 2025-05-25 11:54 | XMS_ITS | Clinical Summary ---
Author Organization [facility] Address [address] [facility] [place] [address] Care Team Providers Care Operator Prefinish Name Role Phone Jennifer Christensen PA-C Primary Care Provider [phone] Moo Triplett DO Unavailable Source Comments [facility],non-owned Affiliates and Associated Physician Practices is amultiple site organization consisting of ambulatory clinics and hospital sitesin [place], [place], [place] and [place]. This disclosure is being madepursuant to the Care Everywhere program and may not contain all information available regarding this patient. Last updated 18.[facility] Allergies Active Allergy Reactions Criticality Noted Date [...] (one) tablet by mouth once daily 4 019 Active Cholecalciferol 50 MCG (1999) Take 1 (one) tablet by mouth every morning Active Menthol, Topical Analgesic, (Biofreeze) 4 % Acti ve VITAMIN E PO Take 1 tablet by mouth every morning Active Multiple Vitamins-Minerals (Super Thera Sierra M) TABS Take 1 (one) tablet by mouth every morning Active hydroCHLOROthiazi de (Hydrodiuril) 25 MG tablet Take 1 (one) tablet by mouth once daily Active docusate sodium (Colace) 100 MG capsule TAKE ONE CAPSULE BY MOUTH 2 TIMES A DAY 60 capsule Active Additional Information Patient not taking.Reason: Patient adjusted, Reported on 04/13/2025 aspirin (Aspirin) 81 MG chew tablet CHEW AND SWALLOW 1 TABLET BY MOUTH TWO TIMES A DAY FOR 42 DAYS FOR BLOOD CLOT PREVENTION 84 tablet Active Additional Information Patient not taking.Reported on 10/13/2024 acetaminophen (Tylenol) 325 MG tablet Take 2 (two) tablets by mouth every 6 hours for 60 doses Maximum allowable Acetaminophen amount = 4 Grams (4000 mg) / 24 hours. 120 tablet Active aspirin (Aspirin) 81 MG chew tablet Take 1 (one) tablet by mouth 2 times daily for 35 days 70 tablet Active Additional Information Patient not taking.Reported on 10/13/2024 gabapentin (Neurontin) 300 MG capsule Take 1 (one) capsule by mouth 3 times daily 90 capsule 2 025 Active traMADol (Ultram) 50 MG tablet Take 1 (one) tablet by mouth every 6 hours as needed for Pain 20 tablet 025 Active celecoxib (CeleBREX) 200 MG capsuleIndication s:Primary osteoarthritis of right knee Take 1 capsule by mouth once daily 30 capsule 025 Active celecoxib (CeleBREX) 200 MG capsuleIndication s:Primary osteoarthritis of right knee Take 1 capsule by mouth once daily 30 capsule 5 025 2024 Discontinued Active Problems Problem Noted Date Diagnosed Date Hand pain, left 11/16/2024 Essential (primary) hypertension 10/06/2024 Obstructive sleep apnea 10/06/2024 Acute pain of left foot 10/06/2024 Open dislocation of phalanx of foot, left, initial encounter 10/05/2024 History of total left knee replacement 9 Primary osteoarthritis of right knee 12/15/2018 Encounters Date Type Department Care Team Description 05/01/[address] [facility] [address] [place] [address], [address] [place] [address] Lew Leos MD Refill Request 04/13/2025 9:19 AM CDT - 04/13/2025 11:59 PM CDT Hospital Encounter [facility] DIAGNOSTIC RAD [facility] [address] [facility] 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 Gender Identity Not on file Sexual Orientation [...] 10/05/2024 4:42 PM CDT Plan of Treatment Health Maintenance [...] DEPRESSION SCREENING 07/29/2024 COVID-19 VACCINE ( season) 2025 05/11/2024, 05/17/2023, 04/21/2022, Additional history exists INFLUENZA VACCINE (#1) 2025 4, 03/27/2023, 04/08/2022, Additional history exists SCREENING FOR DIABETES 10/06/2027 5, 10/03/2023, 04/04/2010 LIPID TESTING 09/20/2028 09/20/2023 Respiratory Syncytial Virus [...] this topic Medical Devices Implanted Type Area Cab Driver Device Identifier Shelf Expiration Date Model / Serial / Lot Cmnt Bone Plc R 40gm Grn Implanted:Qty: 2 on 12/06/2023 by Lew Leos MD at [facility] Right: Knee [employer] 03/28/2026 [id number] / / [id number] Cmpnt Ptlr Std 31mm 3 Pg Kn Ser A Implanted:Qty: 1 on 12/06/2023 by Lew Leos MD at [facility] Right: Knee [employer] 07/02/2028 [id number] / / [id number] Cmpnt Fem Kn Rt Cr Cmnt Prm Vngrd Intlk Implanted:Qty: 1 on 12/06/2023 by Lew Leos MD at [facility] Right: Knee [employer] 07/11/2033 [id number] / / [id number] Tray Tib 83mm Kn Cocr I Beam Implanted:Qty: 1 on 12/06/2023 by Lew Leos MD at [facility] Right: Knee [employer] 01/12/2032 [id number] / / [id number] Tibial Insert 83mm X 14mm Implanted:Qty: 1 on 12/06/2023 by Lew Leos MD at [facility] Right: Knee [employer] 08/03/2027 [id number] / / [id number] Procedures Procedure Name Priority Date/Time Associated Diagnosis Comments XR FOOT LEFT 3VW OR MORE Routine 04/13/2025 9:26 AM CDT Acute pain of left foot COMPREHENSIVE METABOLIC PANEL STAT 10/05/2024 5:13 PM CDT from Last 3 Months or Most Recently Relevant to Health Maintenance Results * XR Foot Left 3Vw or More (04/13/2025 9:26 AM CDT) Anatomical Region Laterality Modality Ankle / Foot Radiographic Millicent ging 04/13/2025 9:46 AM CDT Impressions 04/13/2025 9:49 AM CDT IMPRESSION: Incomplete osseous union across the fracture site of the distal aspect of the first proximal phalanx with the fracture line still apparent with reactive sclerotic healing bone formation seen on both sides of the fracture site.. > Interpreting Provider: Cornelius Smith MD on 04/13/2025 9:49 AM Narrative 04/13/2025 9:49 AM CDT PROCEDURE: XR FOOT LEFT 3VW OR MORE COMPARISON: No relevant available comparison. CLINICAL INFORMATION (none relevant/not provided if blank): Indication: M79.672: Acute pain of left foot Additional History: FINDINGS: AP, internal rotation and lateral views of the left foot were obtained and compared to the prior study from 12/22/2024. Again noted is an obliquely oriented fracture of the distal aspect of first proximal phalanx. There is noted to be some sclerotic changes on both sides of the fracture site with incomplete osseous union across the fracture margins. First metatarsophalangeal joint and first PIP joints appear to be grossly intact. Bunion formation with subcortical cyst formation of the dorsal medial aspect of the first metatarsal head again noted. Arthritic changes also noted involving multiple interphalangeal joints of at least the second through fourth toes. No new fracture is identified. Question of old fractures in relationship to the medial and lateral malleolus. Procedure Note Cornelius Smith MD - 04/13/2025 PROCEDURE: XR FOOT LEFT 3VW OR MORE COMPARISON: No relevant available comparison. CLINICAL INFORMATION (none relevant/not provided if blank): Indication: M79.672: Acute pain of left foot Additional History: FINDINGS: AP, internal rotation and lateral views of the left foot were obtainedand compared to the prior study from 12/22/2024. Again noted is an obliquely oriented fracture of the distal aspect of first proximal phalanx. Thereis noted to be some sclerotic changes on both sides of the fracture sitewith incomplete osseous union across the fracture margins. First metatarsophalangeal joint and first PIP joints appear to be grosslyintact. Bunion formation with subcortical cyst formation of the dorsal medial aspect of the first metatarsal head again noted. Arthritic changes also noted involving multiple interphalangeal joints of at least the second through fourth toes. No new fracture is identified. Question of old fractures in relationshipto the medial and lateral malleolus. IMPRESSION: Incomplete osseous union across the fracture site of thedistal aspect of the first proximal phalanx with the fracture line stillapparent with reactive sclerotic healing bone formation seen on both sides of the fracture site.. > Interpreting Provider: Cornelius Smiht MD on 04/13/2025 9:49 AM Rafaela Hall MD DIAGNOSTIC IMAGING ORDERABLES Fi nal Result * (ABNORMAL) COMPREHENSIVE METABOLIC PANEL (10/05/2024 5:13 PM CDT) BUN 19 7 - 26 mg/dL 10/05/2024 5:55 PM [facility] Creatinine 0.96 0.71 - 1.16 mg/dL 10/05/2024 5:55 PM [facility] Sodium 138 136 - 145 mmol/L 10/05/2024 5:55 PM [facility] Potassium 4.0 3.5 - 4.5 mmol/L 10/05/2024 5:55 PM [facility] Chloride 105 98 - 107 mmol/L 10/05/2024 5:55 PM [facility] CO2 24 22 - 29 mmol/L 10/05/2024 5:55 PM [facility] Glucose 96 70 - 99 mg/dL 10/05/2024 5:55 PM [facility] Calcium 9.4 8.4 - 10.2 mg/dL 10/05/2024 5:55 PM [facility] Protein Total 8.4(H) 6.0 - 8.3 g/dL 10/05/2024 5:55 PM [facility] Albumin 4.1 3.4 - 5.0 g/dL 10/05/2024 5:55 PM [facility] Bilirubin Total 0.7 0.2 - 1.2 mg/dL 10/05/2024 5:55 PM [facility] Alkaline Phosphatase 76 40 - 150 U/L 10/05/2024 5:55 PM [facility] ALT 20 5 - 55 U/L 10/05/2024 5:55 PM [facility] AST 23 5 - 34 U/L 10/05/2024 5:55 PM [facility] Anion Gap 9 6 - 16 10/05/2024 5:55 PM [facility] BUN/Creatinine Ratio 20 7 - 23 10/05/2024 5:55 PM [facility] Osmolality Calculated 288 275 - 295 mOsm/kg 10/05/2024 5:55 PM [facility] Albumin/Globulin Ratio 1.0(L) 1.1 - 2.3 10/05/2024 5:55 PM [facility] eGFR by CKD-EPI 87(L) >=90 mL/min/1.7 3 m2 10/05/2024 5:55 PM [facility] Blood BLOOD SPECIMEN / Unknown Venipuncture / Unknown 10/05/2024 5:13 PM CDT 10/05/2024 5:20 PM [facility] Nikhil Banegas MD LAB - CHEMISTRY ORDERABLES Final Result [facility] [address] [place] [address], [facility] [phone] from Last 3 Months or Most Recently Relevant to Health Maintenance Insurance [facility] Advance Directives * Full Code (Latest Code Status on File) Date Activated Date Inactivated Comments 10/05/2024 11:25 PM 10/06/2024 3:32 PM * Full Code Date Activated Date Inactivated Comments 12/06/2023 12:25 PM 12/07/2023 2:35 PM * Full Code Date Activated Date Inactivated Comments 04/19/2010 12:07 PM 04/23/2010 1:33 AM Care Teams Operator Prefinish Relationship Specialty Start Date End Date Jennifer Christensen PA-C [facility] [address] PCP - General Physician Labor/Excavator 10/03/23 Moo Triplett DO [address] [place] [address] Internal Medicine 10/03/23
--- OUTSIDE RECORDS SUMMARY | 2025-05-25 11:54 | XMS_ITS | Clinical Summary ---
Author Organization 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 Legal Sex Male 7:08 PM CDT Gender Identity Male 08/20/2019 6:33 PM CLOTH PICKER Sexual Orientation Straight 08/20/2019 6: 33 PM CLOTH PICKER Last Filed Vital Signs Vital Sign Reading Time Taken Comments Blood Pressure 131/69 08/21/2019 8:29 AM CLOTH PICKER Pulse 81 08/21/2019 7:00 AM CLOTH PICKER Temperature 37.1 C (98.7 F) 08/21/2019 7:00 AM CLOTH PICKER Respiratory Rate 16 08/21/2019 7:00 AM CLOTH PICKER Oxygen Saturation 94% 08/21/2019 3:16 AM CLOTH PICKER Inhaled Oxygen Concentration - - Weight 124.8 kg (275 lb 2.2 oz) 08/21/2019 3:12 AM CLOTH PICKER Height 182.9 cm (6') 08/20/2019 6:30 PM CLOTH PICKER Body Mass Index 37.31 08/20/2019 6:30 PM CLOTH PICKER Plan of Treatment Health Maintenance Due Date Last Done Comments Colorectal Cancer Screening Colonoscopy (10 Years) 1957 Hepatitis C 1975 DTaP, Tdap and Td Vaccines ( 1 - Tdap) 1976 Pneumococcal Vaccine: 50+ Ye ars (1 of 1 - PCV) 2007 Zoster Vaccines (1 of 2) 2007 COVID-19 Vaccine ( - 2024-2 6 season) 2025 Influenza Adult (#1) 2025 04/22/2010 RSV Immunization or 60+ Years (1 - 1-dose 75+ series) 2032 Hepatitis A Vaccines Aged Out No long er eligible based on patient's age to complete this topic Meningococcal B Vaccine Aged Out No l [...] Problems Recent Progress Patient-Stated? Author HOME TO [facility] No Porsha Walkre, RN Insurance MEDICARE PART A [facility] Advance Directives * Full Code (Latest Code Status on File) Date Activated Date Inactivated Comments 08/20/2019 4:49 PM 08/21/2019 4:35 PM * Full Code Date Activated Date Inactivated Comments 07/11/2019 9:40 AM 07/16/2019 7:06 PM Care Teams Gamemaster Relationship Specialty Start Date End Date Jennifer Christensen PA PCP - General PHYSICIAN ELECTRICAL ENGINEERING TEACHER 01/11/19
--- OUTSIDE RECORDS SUMMARY | 2025-05-25 11:54 | XMS_ITS | Encounter Summary ---
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 Legal Sex Male 7:08 PM CDT Gender Identity Male 08/20/2019 6:33 PM BALL WORKER Sexual Orientation Straight 08/20/2019 6: 33 PM BALL WORKER documented as of this encounter Functional Status * RETIRED Are you deaf or do you have serious difficulty hearing Answer Date of Assessment Author Status No 07/11/2019 9:04 AM BALL WORKER Activ e documented as of this encounter Plan of Treatment Not on file documented as of this encounter Visit Diagnoses Not on filedocumented in this encounter Care Teams Resource Conservationist Relationship Specialty Start Date End Date Jennifer Christensen PA PCP - General PHYSICIAN SPRING ASSEMBLER SUPERVISOR 01/11/19 documented as of this encounter
== END 2025-05-25 12:11 | disposition home or self-care (01) ==
PROVIDERS: PCP Physician Assistant Medical; Visit Provider Anesthesiology Pain Medicine
PROC: (CPT 64493; principal; 2025-05-25 11:30)
DX: M47.816 Spondylosis without myelopathy or radiculopathy, lumbar region (principal)
CPT/HCPCS: 64493 ×2; 64494 ×2; 64495 ×2; 99199

== ENCOUNTER 2025-06-08 08:00 | Outpatient (RCR) | payer OTHER, SELFPAY ==
[2025-05-11 00:08] VITALS: O2SAT 85
[2025-05-25 08:00] VITALS: O2SAT 50; O2SAT 61
--- NOTE | 2025-06-07 08:44 | OTOPDC ---
Assessment and note entered by Vidal Henning, SARA/Aleta, PETE OT D/C 06/07/25 Diagnosis G56.22 Subjective Information Patient has been participating in OT with dx of lesion of ulnar nerve, left UE. He is s/p cubital tunnel release and Guyon's canal release. He continues to report constant pain in the ulnar 2 fingers and reports it's moderate. This has remained unchanged since the start of care. 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 He is now back at work and reports he is able to complete his work tasks. He reports he is feeling more flexibility in the left UE and likes the stretches and nerve glides we have been completing. Reported Pain Level Pain Score Moderate Pain: [place] Assessment OT Clinical Summary Patient referred to OT with dx of ulnar neuropathy s/p cubital tunnel release and Guyon's canal release. He continues to experience constant pain in the ulnar side of his left hand. He is making progress with improved c d still operator and pinch strength. He has made progress with improved fine motor coordination. Sensation - measured by static 2 point discrimination - continues to measure 10 mm (impaired) for the small finger and 5 mm (normal) for the ulnar side of the ring finger. He continues to have 0/5 muscle strength of the palmar and dorsal interossei (finger ab/adduction) as well as a positive Froment's sign due to the chronic ulnar neuropathy. At this time the patient has HEP for stretching, nerve glides, and putty for c d still operator/pinch strengthening. He reports he is ready to wrap up and continue with his HEP. Due to the chronic nature of his condition it may take more time for patient's nerve pain to alleviate. D /C OT at this time. Plan of Care OT Services Indicated No
--- NOTE | 2025-06-08 08:50 | STOPDC ---
Assessment and note entered by RIAZ Hill Evaluation Information Assessment Status Discharge Reported Pain Level Pain Score 0: Self Report Pain Score Moderate Pain: [place] Assessment Clinical Summary Patient's initial evaluation on 02/09/25 demonstrated the following results: Patient attended to explanation of speech therapy scope of practice and independently identified difficulty with verbal expression. He commented that he would like for his word finding to improve in conversation. He completed the SLUMS with a score of 21/30, indicating a mild neurocognitive disorder. Patient demonstrated strength in short term memory and weaknesses in attention, executive functioning and problem solving. Additionally, it was observed that patient had difficulty with working memory due to directions needing to be frequently repeated. Patient participated in further informal evaluation to identify appropriate goals to set in problem solving. He was able to describe ways to solve both simple and complex problems with 100% accuracy. Additionally , he was able to participate in sequencing tasks with 100% accuracy. Patient had more difficult time with verbal problem solving tasks (e.g. describing ways items were alike/different, identifying item that does not belong to the group ). He also demonstrated mild-moderate deficits in functional math/time management problems and functional reading tasks. During this reporting period, patient has attended 5 out of 5 possible treatment sessions. He demonstrated excellent progress as evidenced by meeting goals set in completion of word relationship tasks, word finding tasks, functional reading tasks and use of compensatory memory strategies. During weekly sessions, he attended to strategies to improve cognition including compensatory problem solving strategies and reading strategies. Patient will d/c from skilled ST services due to meeting goals set upon return to work. Patient understands to continue utilizing strategies in his work environment for increased safety and ability to complete work related tasks. Thank you for your referral. Plan of Care ST Services Indicated No
== END 2025-06-08 08:53 | disposition home or self-care (01) ==
LOC: ANHHIST 08:00
PROVIDERS: PCP Physician Assistant Medical; Visit Provider Physician Assistant Medical
DX: R47.89 Other speech disturbances (principal); G56.22 Lesion of ulnar nerve, left upper limb
CPT/HCPCS: 92507; 97018; 97110; 97112; 97140; 97166; 97530

== ENCOUNTER 2025-07-19 06:32 | Day surgery (SDC) | payer OTHER, SELFPAY ==
--- NOTE | ~2025-07-19 | XR_ITS ---
XR fluoroscopy no charge Indication:bilateral L3, L4 and L5 medial branch dorsal ramus nerve block TECHNIQUE: Fluoroscopy used during bilateral L3, L4 and L5 medial branch dorsal ramus nerve block performed by [Lew Grace MD] on 07/19/2025. 47 seconds of fluoroscopy time with 11 fluoroscopic images captured. FINDINGS: Correlate with procedure note. IMPRESSION: Fluoroscopy used during bilateral L3, L4 and L5 medial branch dorsal ramus nerve block. Reviewed, dictated and finalized at location O. [facility] EDUCATION COORDINATOR IMPRESSION: Fluoroscopy used during bilateral L3, L4 and L5 medial branch dorsa l ramus nerve block.
[2025-07-19 06:51] VITALS: BP 151/93; PULSE 85; RESP 18; TEMP 36.9; O2SAT 96
--- NOTE | 2025-07-19 06:55 | P.OP_ITS ---
Procedure Note - Detailed Date of Procedure 07/19/25 Pre-op Diagnosis Lumbar Spondylosis w/o Myelopathy or Radicilopathy Post-op Diagnosis Same Procedure Performed Diagnostic Bilateral Lumbar Medial Branch/Dorsal Ramus Blocks at L3, L4, L5 Treating the Bilateral L4-5, L5-S1 Facet Joints Under Fluoroscopic Guidance and with Contrast Control. (4 levels blocked). Surgeon Lew Grace MD [employer] Extension Worker None. Anesthesia Local Description of Procedure INFORMED CONSENT: Risks, benefits and alternatives to the procedure were discussed in detail with the patient who expressed explicit understanding and consent to proceed. Patient was informed verbally and in written form regarding the risks associated with the procedure including the low risk of serious infection, bleeding/bruising, allergic reaction, nerve or organ injury, paralysis, procedural site pain or discomfort, worsening pain and/or mobility, failure to treat and/or disfigurement. The patient expressed explicit understanding and consent to proceed. All materials required for the procedure were available prior to procedure start. Site and side were marked prior to procedure and confirmed in the presence of the patient. PROCEDURE IN DETAIL: The patient was brought to the procedural suite and placed in the prone position. Patient was made comfortable with use of pillows under the head/chest, hips and ankles. Skin overlying the injection site on the affected side(s) was prepared broadly with ChloraPrep applicator and draped in a sterile manner. Aseptic technique was used throughout. The endplates of the vertebral bodies at the site(s) of interest were aligned in the AP view. I psilateral oblique angulation was utilized to optimize visualization of the intersection between the superior articulating process and transverse process at each target site. Local anesthesia was established by infiltration with approximately 5 mL of 1% lidocaine via a 1-1/2 inch 27-gauge needle. A 25-gauge 5.0 inch Quincke spinal needle was advanced until the needle tip contacted periosteum at the target site, right L3. Lateral view was utilized to confirm the appropriate placement of the needle tip just anterior to the facet line and superior to the pedicle. In the Lateral view, 0.25 mL of Omnipaque 300 contrast medium was injected after negative aspiration for CSF, blood or other bodily fluid, showing appropriate extra-articular spread of contrast without evidence of intravascular, foraminal or intrathecal placement. A 0.5 mL solution of 2.0% PF Lidocaine was injected after negative repeat aspiration. Appropriate spread of the injectate was confirmed with washout of previously injected contrast. No paresthesias were elicited. Needle was removed completely intact without difficulty. The same exact procedure was repeated for all remaining levels on the ipsilateral side, right L4, L5 medial branches/dorsal ramus, modified as necessary to accommodate for the new target location with identical findings and results and no evidence of complication. The same exact procedure was repeated for all remaining levels on the contralateral side, left L3, L4, L5 medial branches/dorsal ramus, modified as necessary to accommodate for the new target location with identical findings and results and no evidence of complication. Images were saved and documented in the patient chart. Patient's skin was cleaned and sterile bandage applied. The patient tolerated the procedure well. The patient was transported to the recovery area in stable condition where they were observed for an appropriate amount of time prior to discharge, without evidence of complication. Patient was instructed on the appropriate completion of a pain diary over the next 12-24 hours. The patient was instructed to avoid excessive activity for the next 48 hours, including climbing and frequent use of stairs. Showers only for 48 hours. They were instructed not to drive or operate heavy machinery for 24 hours. They are to monitor for severe headaches, fevers, chills, night sweats, erythema/swelling at the site or any other signs of infection, bleeding/bruising, bowel or bladder changes as well as new pain, weakness or numbness in the upper or lower extremity. Should they notice these changes, they are instructed to call our office immediately or report directly to the nearest Emergency Department if no answer or if after posted office hours. COMPLICATIONS: None COMMENTS: None CONTRAST WASTED: 28.5mL Omnipaque 300. Complications No immediate complications Condition Stable Disposition Same day [facility] Billing Surgery - Charge Forward: Surgery Billing
--- NOTE | 2025-07-19 06:55 | WPDHPUPDATE1 ---
History and Physical Update Update Date/Time: 07/19/25 06:55 History and Physical has been reviewed, including an updated exam of the patient. There are NO changes in the patient's condition. Risks, benefits, and alternatives have been discussed and questions answered. Patient agrees to proceed with procedure.
[2025-07-19 07:44] VITALS: BP 164/104; PULSE 84; RESP 22; O2SAT 97
[2025-07-19] MEDS: LIDOCAINE 1% PF INJ 5 ML VIAL INFILTRATE (07:48)
[2025-07-19] MEDS: LIDOCAINE 2% PF LOCAL INJ 5 ML VIAL INFILTRATE (07:48)
[2025-07-19 07:49] VITALS: BP 178/105; PULSE 79; RESP 16; O2SAT 96
[2025-07-19 07:57] VITALS: BP 172/108; PULSE 80; RESP 18; O2SAT 97
== END 2025-07-19 08:15 | disposition home or self-care (01) ==
PROVIDERS: PCP Physician Assistant Medical; Visit Provider Anesthesiology Pain Medicine
PROC: (CPT 64493; principal; 2025-07-19 07:50)
DX: M47.816 Spondylosis without myelopathy or radiculopathy, lumbar region (principal)
CPT/HCPCS: 64493 ×2; 64494 ×2; 64495 ×2; 99199